=== PATIENT | female | born 1935 | race Caucasian/White ===

== ENCOUNTER 2022-12-06 12:55 | Observation (INO) ==
[2022-12-06 14:20] LABS: Basophils # (auto) 0.03 K/uL (0-0.2); Basophils % (auto) 0.4 %; Eosinophils # (auto) 0.11 K/uL (0-0.50); Eosinophils % (auto) 1.5 %; Hematocrit (blood only) 37.7 % (37.0-47.0); Hemoglobin 12.4 g/dl (12.0-16.0); Immature Granulocytes # (auto) 0.02 K/uL (0.01-0.20); Immature Granulocytes % (auto) 0.3 %; Lymphocytes # (auto) 1.06 K/uL (1.2-3.4); Mean Corpuscular Hemoglobin 30.2 pg (25.0-34.0); Mean Corpuscular Hgb Conc 32.9 g/dL (32.0-36.0); Mean Corpuscular Volume 91.7 fL (80.0-100.0); Mean Platelet Volume 9.3 fL (9.4-12.4); Monocytes # (auto) 0.67 K/uL (0.11-0.59); Monocytes % (auto) 8.9 %; Neutrophils # (auto) 5.67 K/uL (1.40-6.50); Neutrophils % (auto) 74.9 %; Platelet Count 290 K/uL (130-400); RDW Coefficient of Variation 13.2 % (11.5-14.5); RDW Standard Deviation 44.3 fL (36.4-46.3); Red Blood Count 4.11 M/uL (4.20-5.40); White Blood Count 7.56 K/ul (4.8-10.8)
[2022-12-06 14:22] LABS: Appearance Urine Cloudy (Clear); Bacteria Urine Automated 4+ (Negative); Bilirubin Urine Negative (Negative); Blood Urine 1+ (Negative); Color Urine Dark Yellow; Glucose Urine UA Negative (Negative); Ketones Urine Trace (Negative); Leukocyte Esterase Urine 2+ (Negative); Nitrite Urine Positive (Negative); Protein Urine Trace (Negative); RBC Urine Automated 0-4 /hpf (0-4); Urobilinogen Urine Negative (Negative); WBC Urine Automated >30 /hpf (0-5); pH Urine 6.5 (4.5-7.5)
[2022-12-06 14:38] LABS: Albumin Globulin Ratio 1.2 (0.9-2); Albumin Level 3.9 gm/dl (3.4-5.0); BUN Creatinine Ratio 50.7 (10-20); Bilirubin,Total 0.6 mg/dl (0.2-1.0); Calcium 9.8 mg/dl (8.6-10.3); Creatinine Clr Calc Pharmacy 60.1 ml/min; Est GFR (African American) 85.2 ml/min; Est GFR (Non-African American) 73.5 ml/min; Globulin 3.3 gm/dl (2.5-4.0); Potassium 3.6 mmol/L (3.5-5.1); Total Protein 7.2 gm/dl (6.0-8.3)
--- NOTE | 2022-12-06 14:55 | CT Scan Report ---
CT abd pelvis wo con CLINICAL HISTORY: lower abdominal pain TECHNIQUE: Helical axial images of the abdomen and pelvis were obtained. Automated dose lowering tech niques and/or adjustment according to patient size were utilized for this exam. This exam was perfor med without intravenous contrast. CT DOSE: 1806.46 mGy.cm COMPARISON: None available at the time of this dictation. FINDINGS: Lower chest: Bibasilar atelectasis versus scarring is seen. Severe atherosclerotic disease and cardi omegaly noted. Liver: Unremarkable. No focal lesions are seen. Gallbladder and biliary tree: Patient is status post cholecystectomy. No intra- or extrahepatic bilia ry ductal dilation. Pancreas: Unremarkable, no focal lesions. Spleen: Unremarkable. Adrenals: Unremarkable. Kidneys and ureters: Exophytic left renal cyst is seen. Bladder: Diffuse homogeneous wall thickening is seen. Reproductive organs: Unremarkable. Bowel: There is prominent thickening of the rectal wall. Surrounding fat stranding is seen. Numerous diverticula are seen without evidence of diverticulitis. The appendix is normal. A moderate hiatal he rnia is seen. Lymph nodes Retroperitoneal: Unremarkable. Pelvic: Unremarkable. Mesenteric: Unremarkable. Peritoneum: Perirectal fat stranding is seen. No fluid collections or pneumoperitoneum is seen. Vessels: Atherosclerotic calcifications are seen. Abdominal wall: Unremarkable. Bones: Degenerative changes in the visualized spine. IMPRESSION: Thickening of the rectal wall with perirectal fat stranding may represent proctitis, underlying mass lesion cannot be excluded. ACT 112: Negative or not required by law. Electronically signed by: Koby Chin M.D. 12/06/2022 2:54 PM
[2022-12-06] MEDS ORDERED: cefTRIAXone SODIUM 1,000 MG in DEXTROSE 5% AD-VAN 50 ML IV STA (15:36)
--- NOTE | 2022-12-06 15:46 | Emergency Department Note ---
Impression & Plan Abdominal pain, Acute proctitis, Acute UTI (urinary tract infection) ED Provider Note HISTORY OF PRESENT ILLNESS: Patient is an 87-year-old female presenting with abdominal pain. Patient is demented and unable to provide much in terms of history. History obtained from family members at bedside. Reports that the patient was complaining of lower abdominal pain last night and throughout this morning. They were concerned about her continued complaints and thus presented to the ER. Patient is cared for by her son and has in-home nursing come to visit her daily. Her other son is concerned that the [facility] is unable to care for the patient. Patient reportedly had some blood in her stool yesterday. Patient has no complaints on arrival to the ER. She reportedly had a large bowel movement on arrival to the ED. ROS: as above PHYSICAL EXAM: Constitutional: Patient appears in no acute distress. HENT: Head: Normocephalic and atraumatic. Eyes: EOMI, PERRL Mouth/Throat: Mucous membranes moist. Neck: Trachea midline. Neck supple. Cardiovascular: RRR, No murmurs, rubs or gallops. Intact distal pulses. Pulmonary/Chest: No respiratory distress. Breath sounds clear and equal bilaterally. No wheezes or rales. Abdominal: Abdomen soft, no tenderness, rebound or guarding. Rectal: Chaperoned by nursing staff. Patient has stage I decubitus ulcers to her bilateral buttocks. She is also noted to have small external hemorrhoids noted Musculoskeletal: No edema, tenderness or deformity noted. Skin: Warm and dry. No rash, erythema, pallor or cyanosis Neurological: Alert. CN II-XII grossly intact, moving all extremities spontaneously. MDM: - Vitals signs stable - History obtained via family at bedside, given patient's dementia. Patient presents with lower abdominal pain. Patient reportedly was complaining of lower abdominal pain since last night and into today. Family wanted her to be evaluated. Patient is demented and is unable to provide any history - Chronic conditions affecting care: dementia - Differential diagnoses include, but are not limited to: constipation; small bowel obstruction; UTI; ureteral stone; bowel perforation - Order placed for continuous cardiac monitoring. At this time, monitor showed rate of 75 bpm with normal sinus rhythm, per my interpretation. - External medical records reviewed. - Laboratory workup interpreted by myself showed normal WBC; stable electrolytes; elevated BUN (37); normal lipase - UA shows evidence of infection - CT abdomen/pelvis wo contrast showed thickening of the rectal wall with perirectal fat stranding concerning for proctitis - Patient had a very large bowel movement in the emergency department on arrival prior to CT imaging being performed. She may have had some fecal impaction based on her 1 sons information and history. - Given IV Rocephin in the ER - Patient's 1 son who is not her MPOA expresses concern about the patient being cared for by the current MPOA, as he has recently relapsed with alcohol. I discussed the case with home health care social worker who is working to contact [place] [facility] about the patient's situation - Discussion was had with home health care social worker about patient's case and need for admission. - Hospitalist consulted for admission - Patient admitted to [facility]ist service for further evaluation and management. ASSESSMENT AND PLAN: Diagnosis: abdominal pain; procitis; UTI Plan: admit Past Med/Surg History Medical History No pertinent past medical history Surgical History No pertinent past surgical history Social History Smoking Status: Unknown if ever smoked Feels Safe at Home: Yes Allergies Allergies Allergy/AdvReac Type Severity Reaction Status Date / Time No Known Allergies Allergy Verified 12/06/22 15:05 Home Meds Home Medications Medication Instructions Recorded Confirmed Other Vitamins 1 dose PO DAILY 12/06/22 12/06/22 buspirone 10 mg tablet 10 mg PO BID 12/06/22 12/06/22 buspirone 5 mg tablet 5 - 10 mg PO DAILY PRN Anxiety 12/06/22 12/06/22 cholecalciferol (vitamin D3) 125 125 mcg PO DAILY 12/06/22 12/06/22 mcg (5,000 unit) tablet (Vitamin D3) sertraline 50 mg tablet 50 mg PO DAILY 12/06/22 12/06/22 Results & Data (ED) Vital Signs Vital Signs - 24 hr 12/06/22 12:50 12/06/22 14:19 12/06/22 14:39 Temperature 36.5 C Temperature Source Oral Pulse Rate 70 52 L Pulse Rate [Right Finger] 76 Pulse Rhythm [Right Finger] Regular Pulse Strength [Right Finger] Normal Respiratory Rate 20 20 Respiratory Effort / Characteristics Non-Labored Spontaneous Non-Labored Respiratory Depth Normal Normal Respiratory Pattern Regular Blood Pressure 170/82 H Blood Pressure [Right Arm] 138/61 Blood Pressure Mean 111 Blood Pressure Mean [Right Arm] 86 Blood Pressure Position [Right Arm] Lying Pulse Oximetry 96 97 Oxygen Delivery Method Room Air Room Air Sepsis Recent Fever Within 48 Hours No Sepsis New/Unexplained Change in Mental Status No Sepsis Action Taken by Nursing No Action Required Laboratory Data 12/06/22 13:40 12/06/22 13:40 Lab Results 12/06/22 12/06/22 12/06/22 Range/Units 13:40 13:40 14:00 WBC 7.56 (4.8-10.8) K/ul RBC 4.11 L (4.20-5.40) M/uL Hgb 12.4 (12.0-16.0) g/dl Hct 37.7 (37.0-47.0) % MCV 91.7 (80.0-100.0) fL MCH 30.2 (25.0-34.0) pg MCHC 32.9 (32.0-36.0) g/dL RDW Std Deviation 44.3 (36.4-46.3) fL RDW Coeff of Kael 13.2 (11.5-14.5) % Plt Count 290 (130-400) K/uL MPV 9.3 L (9.4-12.4) fL Immature Gran % (Auto) 0.3 % Neut % (Auto) 74.9 % Lymph % (Auto) 14.0 % Victoria % (Auto) 8.9 % Eos % (Auto) 1.5 % Baso % (Auto) 0.4 % Neut # (Auto) 5.67 (1.40-6.50) K/uL Lymph # (Auto) 1.06 L (1.2-3.4) K/uL Victoria # (Auto) 0.67 H (0.11-0.59) K/uL Eos # (Auto) 0.11 (0-0.50) K/uL Baso # (Auto) 0.03 (0-0.2) K/uL Immature Gran # (Auto) 0.02 (0.01-0.20) K/uL Sodium 141 (136-145) mmol/L Potassium 3.6 (3.5-5.1) mmol/L Chloride 107 (98-107) mmol/L Carbon Dioxide 27 (21-32) mmol/L Anion Gap 7 (3-11) BUN 37 H (6-23) mg/dl Creatinine 0.73 (0.6-1.2) mg/dl Est Cr Clr Drug Dosing 60.1 ml/min Est GFR ( Amer) 85.2 ml/min Est GFR (Non-Af Amer) 73.5 ml/min BUN/Creatinine Ratio 50.7 H (10-20) Glucose 108 H (70-99(Fasting)) mg/dl Calcium 9.8 (8.6-10.3) mg/dl Total Bilirubin 0.6 (0.2-1.0) mg/dl AST 22 (13-39) U/L ALT 18 (7-52) U/L Alkaline Phosphatase 105 H (34-104) U/L Total Protein 7.2 (6.0-8.3) gm/dl Albumin 3.9 (3.4-5.0) gm/dl Globulin 3.3 (2.5-4.0) gm/dl Albumin/Globulin Ratio 1.2 (0.9-2) Lipase 27 (11-82) U/L Urine Color Dark Yellow Urine Appearance Cloudy A (Clear) Urine pH 6.5 (4.5-7.5) Ur Specific Ewing 1.020 (1.000-1.030) Urine Protein Trace H (Negative) Urine Glucose (UA) Negative (Negative) Urine Ketones Trace H (Negative) Urine Blood 1+ H (Negative) Urine Nitrite Positive A (Negative) Urine Bilirubin Negative (Negative) Urine Urobilinogen Negative (Negative) Ur Leukocyte Esterase 2+ H (Negative) Urine WBC (Auto) >30 H (0-5) /hpf Urine RBC (Auto) 0-4 (0-4) /hpf U Hyaline Cast (Auto) 1-5 (0-5) /lpf U Epithel Cells (Auto) 5-10 H (0-5) /lpf Urine Bacteria (Auto) 4+ H (Negative) Urine Yeast Not Reportable Imaging Data Radiologist's Impression: Abdomen/Pelvis CT 12/06/22 13:27 CT abd pelvis wo con CLINICAL HISTORY: lower abdominal pain TECHNIQUE: Helical axial images of the abdomen and pelvis were obtained. Automated dose lowering techniques and/or adjustment according to patient size were utilized for this exam. This exam was performed without intravenous contrast. CT DOSE: 1806.46 mGy.cm COMPARISON: None available at the time of this dictation. FINDINGS: Lower chest: Bibasilar atelectasis versus scarring is seen. Severe atherosclerotic disease and cardiomegaly noted. Liver: Unremarkable. No focal lesions are seen. Gallbladder and biliary tree: Patient is status post cholecystectomy. No intra- or extrahepatic biliary ductal dilation. Pancreas: Unremarkable, no focal lesions. Spleen: Unremarkable. Adrenals: Unremarkable. Kidneys and ureters: Exophytic left renal cyst is seen. Bladder: Diffuse homogeneous wall thickening is seen. Reproductive organs: Unremarkable. Bowel: There is prominent thickening of the rectal wall. Surrounding fat stranding is seen. Numerous diverticula are seen without evidence of diverticulitis. The appendix is normal. A moderate hiatal hernia is seen. Lymph nodes Retroperitoneal: Unremarkable. Pelvic: Unremarkable. Mesenteric: Unremarkable. Peritoneum: Perirectal fat stranding is seen. No fluid collections or pneumoperitoneum is seen. Vessels: Atherosclerotic calcifications are seen. Abdominal wall: Unremarkable. Bones: Degenerative changes in the visualized spine. IMPRESSION: Thickening of the rectal wall with perirectal fat stranding may represent proctitis, underlying mass lesion cannot be excluded. ACT 112: Negative or not required by law. Electronically signed by: Koby Chin M.D. 12/06/2022 2:54 PM Discharge Plan Visit Data Chief Complaint: Abdominal Pain Stated Complaint: Abd Pain ED Provider: Adilene Rajput Discharge Problem: Abdominal pain, Acute proctitis, Acute UTI (urinary tract infection) Forms Stand Alone Forms: My [facility] Aunt Bertha Prescriptions Prescriptions: No Action buspirone 5 mg tablet 5 - 10 mg PO DAILY PRN (Reason: Anxiety) Rx Instructions: PER PT'S SON "DOES NOT USE THIS DOSE". buspirone 10 mg tablet 10 mg PO BID Rx Instructions: PER PT'S SON "TAKES ONLY WHEN NEEDED". sertraline 50 mg tablet 50 mg PO DAILY Rx Instructions: PER PT'S SON "FILLED SCRIPT, BUT NEVER HAS TAKEN". cholecalciferol (vitamin D3) [Vitamin D3] 125 mcg (5,000 unit) Tablet 125 mcg PO DAILY Other Vitamins 1 dose PO DAILY Rx Instructions: PER PT'S SON "TAKES OTHER VITAMINS TOO". Referrals Referrals: Iávn Haddad [facility] [Primary Care Provider] -
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
[2022-12-06] MEDS ORDERED: cefTRIAXone SODIUM 1,000 MG in DEXTROSE 5% 50 ML IV STA (16:54)
[2022-12-06] MEDS ORDERED: ALUMINUM/MAGNESIUM SUSP 30 ML UDC PO PRN (18:27)
[2022-12-06] MEDS ORDERED: ACETAMINOPHEN 325 MG TAB PO PRN (18:27)
[2022-12-06] MEDS ORDERED: MAGNESIUM HYDROXIDE SUSP 30 ML UDC PO PRN (18:27)
[2022-12-06] MEDS ORDERED: LACTATED RINGER'S 1,000 ML IV SCH (18:27)
[2022-12-06] MEDS ORDERED: ONDANSETRON INJ 2 MG/ML 2 ML VIAL IV PRN (18:27)
[2022-12-06] MEDS: DOCUSATE SODIUM/SENNA 50/8.6MG TAB PO SCH (19:42)
[2022-12-06] MEDS: ENOXAPARIN INJ 40 MG/0.4 ML SYR SQ SCH (20:55)
[2022-12-07 07:27] LABS: Basophils # (auto) 0.02 K/uL (0-0.2); Basophils % (auto) 0.4 %; Eosinophils # (auto) 0.16 K/uL (0-0.50); Eosinophils % (auto) 3.2 %; Hematocrit (blood only) 33.7 % (37.0-47.0); Hemoglobin 11.4 g/dl (12.0-16.0); Immature Granulocytes # (auto) 0.01 K/uL (0.01-0.20); Immature Granulocytes % (auto) 0.2 %; Lymphocytes % (auto) 26.2 %; Mean Corpuscular Hemoglobin 30.1 pg (25.0-34.0); Mean Corpuscular Hgb Conc 33.8 g/dL (32.0-36.0); Mean Corpuscular Volume 88.9 fL (80.0-100.0); Mean Platelet Volume 9.2 fL (9.4-12.4); Monocytes % (auto) 12.1 %; Neutrophils # (auto) 2.87 K/uL (1.40-6.50); Neutrophils % (auto) 57.9 %; Platelet Count 265 K/uL (130-400); RDW Coefficient of Variation 13.2 % (11.5-14.5); RDW Standard Deviation 42.9 fL (36.4-46.3); Red Blood Count 3.79 M/uL (4.20-5.40); White Blood Count 4.96 K/ul (4.8-10.8)
[2022-12-07 07:54] LABS: Albumin Globulin Ratio 1.1 (0.9-2); Albumin Level 3.4 gm/dl (3.4-5.0); BUN Creatinine Ratio 51.8 (10-20); Bilirubin,Total 0.6 mg/dl (0.2-1.0); Calcium 9.2 mg/dl (8.6-10.3); Creatinine Clr Calc Pharmacy 71.8 ml/min; Est GFR (African American) 96.5 ml/min; Est GFR (Non-African American) 83.2 ml/min; Magnesium 1.9 mg/dl (1.7-2.4); Potassium 3.8 mmol/L (3.5-5.1); Total Protein 6.4 gm/dl (6.0-8.3)
[2022-12-07] MEDS: DOCUSATE SODIUM/SENNA 50/8.6MG TAB PO SCH (07:56)
[2022-12-07] MEDS ORDERED: NYSTATIN CR 15 GM TUBE EXT SCH (09:30)
--- NOTE | 2022-12-07 09:33 | Hospitalist Progress Note ---
Date of Service December 07, 2022 Assessment & Plan (1) Acute UTI (urinary tract infection): (2) Abdominal pain: (3) Dehydration: (4) Anxiety: Plan This is an 87-year-old female who has underlying dementia and anxiety who presents to ED secondary to abdominal pain. CT a/p:Thickening of the rectal wall with perirectal fat stranding may represent proctitis, underlying mass lesion cannot be excluded. Abdominal Pain Acute UTI abd pain likely in setting of constipation has resolved after bowel movement urinalysis consistent with UTI Empiric Rocephin was initiated Will await urine culture - ucultx shows multiple organisms -> will re-collect Patient does not appear toxic and does not meet sepsis criteria Consult PT OT Sacral Erythema/wound b/l stage 2, POA wound care consulted Dementia Anxiety per son at bedside pt does not take any medications at home despite med list; therefore will not continue any meds documented FULL CODE DISPO: med/surg DVT ppx: Lovenox PCP: Iván Haddad Per admitting provider - Dispo: CM consulted, concern regarding safety of pt returning home with son who is reported to have relapsed. Pt also has evidence of sacral breakdown and per Gonzalez is only being changed 3-4 x a day. APS was made aware per CM in ED. will need further assistance with dispo, CM consulted Admission and Anticipated Discharge Date Admission Date: December 06, 2022 Subjective Pt seen in follow up of UTI, constipation/ poss. fecal impaction documented laquita or to coming to ED, now resolved CM involved - pt has 2 sons - one of them is POA - OOA involved, one son acutely passed prior to pt's admission Pt on ceftriaxone for UTI, ucultx pending -> will repeat as multiple organisms Currently pt laying in bed in NAD Denies any pain, no chest pain, shortness of breath, no abd. pain Updated son over the phone Review of Systems Review of Systems: All systems reviewed & are unremarkable except as noted in Subjective Physical Exam 2 Physical Exam: Constitutional: W D/WN, Elderly, F, vitals as above, N AD, sitting up in bed, pleasant, con versing easily Hea d: Normocephalic, Atraumatic, + brui sing to superior a spect of left eye Eyes: PERRL, conj unctivae normal, a nicteric sclerae E NMT: external ear and nose normal, oropharynx normal Neck: normal visu al inspection Resp iratory: normal r espiratory effort, lungs clear to au scultation, no whe garrett, rales, rhonch i. Cardiovascular: RRR, no murmur, no edema Vessels: no JVD or carotid bruit Chest: norm al inspection of c hest Abdomen: norm al bowel sounds, s oft, nontender Mus culoskeletal: move s extremities Skin : no rashes, warm and dry normal t urgor Neurologic: drowsy but answer s simple questions , PERRL, no face p alsy, moves extrem ities Results & Data Results & Data Vital Signs (Past 12 Hours) Vital Signs Temp Pulse Resp BP Pulse Ox O2 Del Method 12/07/22 06:17 36.8 C 79 18 162/90 H 96 Room Air Laboratory Results 12/07/22 12/07/22 12/06/22 Range/Units 07:01 07:01 14:00 WBC 4.96 (4.8-10.8) K/ul RBC 3.79 L (4.20-5.40) M/uL Hgb 11.4 L (12.0-16.0) g/dl Hct 33.7 L (37.0-47.0) % MCV 88.9 (80.0-100.0) fL MCH 30.1 (25.0-34.0) pg MCHC 33.8 (32.0-36.0) g/dL RDW Std Deviation 42.9 (36.4-46.3) fL RDW Coeff of Kael 13.2 (11.5-14.5) % Plt Count 265 (130-400) K/uL MPV 9.2 L (9.4-12.4) fL Immature Gran % (Auto) 0.2 % Neut % (Auto) 57.9 % Lymph % (Auto) 26.2 % [place] % (Auto) 12.1 % Eos % (Auto) 3.2 % Baso % (Auto) 0.4 % Neut # (Auto) 2.87 (1.40-6.50) K/uL Lymph # (Auto) 1.30 (1.2-3.4) K/uL [place] # (Auto) 0.60 H (0.11-0.59) K/uL Eos # (Auto) 0.16 (0-0.50) K/uL Baso # (Auto) 0.02 (0-0.2) K/uL Immature Gran # (Auto) 0.01 (0.01-0.20) K/uL Sodium 140 (136-145) mmol/L Potassium 3.8 (3.5-5.1) mmol/L Chloride 111 H (98-107) mmol/L Carbon Dioxide 24 (21-32) mmol/L Anion Gap 5 (3-11) BUN 29 H (6-23) mg/dl Creatinine 0.56 L (0.6-1.2) mg/dl Est Cr Clr Drug Dosing 71.8 ml/min Est GFR ( Amer) 96.5 ml/min Est GFR (Non-Af Amer) 83.2 ml/min BUN/Creatinine Ratio 51.8 H (10-20) Glucose 86 (70-99(Fasting)) mg/dl Calcium 9.2 (8.6-10.3) mg/dl Magnesium 1.9 (1.7-2.4) mg/dl Total Bilirubin 0.6 (0.2-1.0) mg/dl AST 19 (13-39) U/L ALT 14 (7-52) U/L Alkaline Phosphatase 90 (34-104) U/L Total Protein 6.4 (6.0-8.3) gm/dl Albumin 3.4 (3.4-5.0) gm/dl Globulin 3.0 (2.5-4.0) gm/dl Albumin/Globulin Ratio 1.1 (0.9-2) Lipase (11-82) U/L Urine Color Dark Yellow Urine Appearance Cloudy A (Clear) Urine pH 6.5 (4.5-7.5) Ur Specific [place] 1.020 (1.000-1.030) Urine Protein Trace H (Negative) Urine Glucose (UA) Negative (Negative) Urine Ketones Trace H (Negative) Urine Blood 1+ H (Negative) Urine Nitrite Positive A (Negative) Urine Bilirubin Negative (Negative) Urine Urobilinogen Negative (Negative) Ur Leukocyte Esterase 2+ H (Negative) Urine WBC (Auto) >30 H (0-5) /hpf Urine RBC (Auto) 0-4 (0-4) /hpf U Hyaline Cast (Auto) 1-5 (0-5) /lpf U Epithel Cells (Auto) 5-10 H (0-5) /lpf Urine Bacteria (Auto) 4+ H (Negative) Urine Yeast Not Reportable 12/06/22 12/06/22 Range/Units 13:40 13:40 WBC 7.56 (4.8-10.8) K/ul RBC 4.11 L (4.20-5.40) M/uL Hgb 12.4 (12.0-16.0) g/dl Hct 37.7 (37.0-47.0) % MCV 91.7 (80.0-100.0) fL MCH 30.2 (25.0-34.0) pg MCHC 32.9 (32.0-36.0) g/dL RDW Std Deviation 44.3 (36.4-46.3) fL RDW Coeff of Kael 13.2 (11.5-14.5) % Plt Count 290 (130-400) K/uL MPV 9.3 L (9.4-12.4) fL Immature Gran % (Auto) 0.3 % Neut % (Auto) 74.9 % Lymph % (Auto) 14.0 % [place] % (Auto) 8.9 % Eos % (Auto) 1.5 % Baso % (Auto) 0.4 % Neut # (Auto) 5.67 (1.40-6.50) K/uL Lymph # (Auto) 1.06 L (1.2-3.4) K/uL [place] # (Auto) 0.67 H (0.11-0.59) K/uL Eos # (Auto) 0.11 (0-0.50) K/uL Baso # (Auto) 0.03 (0-0.2) K/uL Immature Gran # (Auto) 0.02 (0.01-0.20) K/uL Sodium 141 (136-145) mmol/L Potassium 3.6 (3.5-5.1) mmol/L Chloride 107 (98-107) mmol/L Carbon Dioxide 27 (21-32) mmol/L Anion Gap 7 (3-11) BUN 37 H (6-23) mg/dl Creatinine 0.73 (0.6-1.2) mg/dl Est Cr Clr Drug Dosing 60.1 ml/min Est GFR ( Amer) 85.2 ml/min Est GFR (Non-Af Amer) 73.5 ml/min BUN/Creatinine Ratio 50.7 H (10-20) Glucose 108 H (70-99(Fasting)) mg/dl Calcium 9.8 (8.6-10.3) mg/dl Magnesium (1.7-2.4) mg/dl Total Bilirubin 0.6 (0.2-1.0) mg/dl AST 22 (13-39) U/L ALT 18 (7-52) U/L Alkaline Phosphatase 105 H (34-104) U/L Total Protein 7.2 (6.0-8.3) gm/dl Albumin 3.9 (3.4-5.0) gm/dl Globulin 3.3 (2.5-4.0) gm/dl Albumin/Globulin Ratio 1.2 (0.9-2) Lipase 27 (11-82) U/L Urine Color Urine Appearance (Clear) Urine pH (4.5-7.5) Ur Specific [place] (1.000-1.030) Urine Protein (Negative) Urine Glucose (UA) (Negative) Urine Ketones (Negative) Urine Blood (Negative) Urine Nitrite (Negative) Urine Bilirubin (Negative) Urine Urobilinogen (Negative) Ur Leukocyte Esterase (Negative) Urine WBC (Auto) (0-5) /hpf Urine RBC (Auto) (0-4) /hpf U Hyaline Cast (Auto) (0-5) /lpf U Epithel Cells (Auto) (0-5) /lpf Urine Bacteria (Auto) (Negative) Urine Yeast Medications Administered Current Inpatient Medications Acetaminophen (Acetaminophen 325 Mg Tab) 650 mg PO Q4H PRN PRN Reason: pain/fever Stop: 01/05/23 18:26 Al Hydrox/Mg Hydrox/Simethicone (Aluminum/Magnesium Susp 30 Ml Udc) 30 ml PO Q6H PRN PRN Reason: Dyspepsia Stop: 01/05/23 18:26 Enoxaparin Sodium (Enoxaparin Inj 40 Mg/0.4 Ml Syr) 40 mg SQ HS BRITNI Stop: 01/05/23 20:59 Last Admin: 12/06/22 20:55 Dose: 40 mg Ceftriaxone Sodium 2,000 mg/ (Dextrose) 70 mls @ 100 mls/hr IV Q24H BRITNI; Protocol Stop: 12/17/22 13:59 Magnesium Hydroxide (Magnesium Hydroxide Susp 30 Ml Udc) 30 ml PO Q6H PRN PRN Reason: Constipation Stop: 01/05/23 18:26 Nystatin (Nystatin Cr 15 Gm Tube) 1 appln EXT PRN BRITNI Stop: 01/06/23 09:29 Ondansetron HCl (Ondansetron Inj 2 Mg/Ml 2 Ml Vial) 4 mg IV Q6H PRN PRN Reason: Nausea Stop: 01/05/23 18:26 Senna/Docusate Sodium (Docusate Sodium/Senna 50/8.6mg Tab) 1 tab PO QAM [facility] Stop: 01/05/23 18:44 Last Admin: 12/07/22 07:56 Dose: 1 tab
[2022-12-07] MEDS ORDERED: NYSTATIN CR 15 GM TUBE EXT PRN (09:50)
[2022-12-07] MEDS: cefTRIAXone SODIUM 2,000 MG in DEXTROSE 5% 50 ML IV SCH (14:15)
[2022-12-07 15:34] LABS: Appearance Urine Turbid (Clear); Bacteria Urine Automated Negative (Negative); Bilirubin Urine Negative (Negative); Blood Urine Negative (Negative); Cast Urine Automated 0 /lpf (0-5); Color Urine Yellow; Glucose Urine UA Negative (Negative); Ketones Urine Negative (Negative); Leukocyte Esterase Urine Trace (Negative); Nitrite Urine Positive (Negative); Protein Urine Negative (Negative); Specific Gravity Urine 1.021 (1.000-1.030); Urobilinogen Urine Negative (Negative); pH Urine 7.5 (4.5-7.5)
[2022-12-07 15:53] LABS: Amorphous Sediment Urine Present (None Prsent)
[2022-12-07] MEDS: SODIUM CHLORIDE 0.9% 500 ML IV SCH (16:26)
[2022-12-07] MEDS: ENOXAPARIN INJ 40 MG/0.4 ML SYR SQ SCH (20:15)
[2022-12-08] MEDS ORDERED: OLANZapine 10 MG/2.1 ML SDV IM STA (04:23)
[2022-12-08 06:53] LABS: Hematocrit (blood only) 31.1 % (37.0-47.0); Hemoglobin 10.7 g/dl (12.0-16.0); Mean Corpuscular Hemoglobin 30.7 pg (25.0-34.0); Mean Corpuscular Hgb Conc 34.4 g/dL (32.0-36.0); Mean Corpuscular Volume 89.4 fL (80.0-100.0); Mean Platelet Volume 9.4 fL (9.4-12.4); Platelet Count 233 K/uL (130-400); RDW Coefficient of Variation 13.2 % (11.5-14.5); RDW Standard Deviation 43.4 fL (36.4-46.3); Red Blood Count 3.48 M/uL (4.20-5.40); White Blood Count 3.71 K/ul (4.8-10.8)
[2022-12-08 07:15] LABS: BUN Creatinine Ratio 41.5 (10-20); Calcium 9.1 mg/dl (8.6-10.3); Creatinine Clr Calc Pharmacy 75.9 ml/min; Est GFR (African American) 98.3 ml/min; Est GFR (Non-African American) 84.8 ml/min; Magnesium 1.7 mg/dl (1.7-2.4); Phosphorus 3.2 mg/dl (2.5-4.9); Potassium 3.7 mmol/L (3.5-5.1)
[2022-12-08] MEDS: DOCUSATE SODIUM/SENNA 50/8.6MG TAB PO SCH (09:19)
[2022-12-08] MEDS: SODIUM CHLORIDE 0.9% 500 ML IV SCH ×2 (14:13→19:02)
[2022-12-08] MEDS: cefTRIAXone SODIUM 2,000 MG in DEXTROSE 5% 50 ML IV SCH (14:34)
[2022-12-08] MEDS: ENOXAPARIN INJ 40 MG/0.4 ML SYR SQ SCH (20:32)
--- NOTE | 2022-12-08 20:53 | Hospitalist Progress Note ---
Date of Service December 08, 2022 delayed entry date of service noted above Assessment & Plan (1) Acute UTI (urinary tract infection): (2) Abdominal pain: (3) Dehydration: (4) Anxiety: Plan (1) Acute UTI (urinary tract infection): (2) Abdominal pain: (3) Dehydration: (4) Anxiety: Plan This is an 87-year-old female who has underlying dementia and anxiety who presents to ED secondary to abdominal pain. CT a/p:Thickening of the rectal wall with perirectal fat stranding may represent proctitis, underlying mass lesion cannot be excluded. Abdominal Pain likely secondary to constipation Acute UTI abd pain likely in setting of constipation has resolved after bowel movement urinalysis consistent with UTI Urine culture: Multiple organisms, no sensitivities Improving with IV ceftriaxone MiraLAX daily Sacral Erythema/wound b/l stage 2, POA wound care consulted Dementia Anxiety per son at bedside pt does not take any medications at home despite med list; therefore will not continue any meds documented FULL CODE DISPO: med/surg DVT ppx: Lovenox PCP: Iván Haddad plan of care discussed with patient's son in detail and at length all questions answered he is understanding, agreeable, comfortable with the plan of care Admission and Anticipated Discharge Date Admission Date: December 07, 2022 Subjective ff up for UTI, etc seen resting in bedside chair, comfortable oriented x 1-2 answers most questions appropriately denies abdominal pain, urinary problems, fever/chills no chest pain, dyspnea, palpitations, dizziness no other symptoms son at bedside visiting Review of Systems 2 Review of Systems: all noted and negative except for above Physical Exam Physical Exam: General- oriented x 1-2, not in distress, speaks in sentences with no effort or accessory muscle use Head- atraumatic Eyes- PERRL, EOMI, anicteric ENT- oropharynx clear Neck- supple, no JVD, no adenopathy, no thyromegaly; carotids +2/2, no bruits appreciated Lungs- clear to auscultation bilaterally, no rales/wheezes Heart- normal rate, regular rhythm; no murmur, no gallop, no rub appreciated Abdomen- normal bowel sounds, nondistended, soft, nontender, no masses or hepatosplenomegaly Extremities- no pretibial edema, no calf tenderness; peripheral pulses intact Neuro- alert, oriented x 1-2; CN 2-12 grossly intact; pleasantly confused, no other focal symptoms Skin- warm & dry Results & Data Results & Data Vital Signs (Past 12 Hours) Vital Signs Temp Pulse Resp BP Pulse Ox O2 Del Method 12/08/22 20:28 36.9 C 64 18 148/80 H 95 Room Air 12/08/22 19:36 36.7 C 60 18 137/70 96 Room Air 12/08/22 14:09 36.8 C 61 18 145/73 H 95 Room Air all noted and reviewed including below
[2022-12-09] MEDS: DOCUSATE SODIUM/SENNA 50/8.6MG TAB PO SCH (08:14)
[2022-12-09] MEDS: cefTRIAXone SODIUM 2,000 MG in DEXTROSE 5% 50 ML IV SCH (14:16)
--- NOTE | 2022-12-09 20:48 | Hospitalist Progress Note ---
Date of Service December 09, 2022 Assessment & Plan (1) Acute UTI (urinary tract infection): (2) Abdominal pain: (3) Dehydration: (4) Anxiety: Plan This is an 87-year-old female who has underlying dementia and anxiety who presents to ED secondary to abdominal pain. CT a/p:Thickening of the rectal wall with perirectal fat stranding may represent proctitis, underlying mass lesion cannot be excluded. Abdominal Pain likely secondary to constipation Acute UTI abd pain likely in setting of constipation has resolved after bowel movement urinalysis consistent with UTI Urine culture: Multiple organisms, no sensitivities Improving with IV ceftriaxone x4 days, transition to cefdinir 300 mg p.o. twice daily today MiraLAX daily Sacral Erythema/wound b/l stage 2, POA wound care consulted Dementia Anxiety per son at bedside pt does not take any medications at home despite med list; therefore will not continue any meds documented FULL CODE DISPO: med/surg DVT ppx: Lovenox PCP: Iván Haddad Admission and Anticipated Discharge Date Admission Date: December 07, 2022 Subjective Follow-up for UTI, etc. Seen sitting up in bed side chair, sleeping but easily awakened Patient has been doing puzzles States she feels fine overall Denies abdominal/flank/back pain, no problems with urination or bowel movement Review of Systems Review of Systems: all noted and negative except for above Physical Exam Physical Exam: General- not oriented, breathing with no effort or accessory muscle use Eyes- anicteric Neck- no JVD Lungs- clear breath sounds bilaterally Heart- normal rate, regular rhythm; no murmurs Abdomen- normal bowel sounds, nondistended, soft, nontender Extremities-mild pedal edema, no calf tenderness Neuro- alert, pleasantly confused, no gross focal neurologic deficits Skin- warm & dry Results & Data Results & Data Vital Signs (Past 12 Hours) Vital Signs Temp Pulse Resp BP Pulse Ox O2 Del Method 12/09/22 14:54 37.0 C 54 L 16 145/76 H 98 Room Air 12/09/22 09:50 Room Air
[2022-12-09] MEDS: ENOXAPARIN INJ 40 MG/0.4 ML SYR SQ SCH (21:20)
[2022-12-10] MEDS: DOCUSATE SODIUM/SENNA 50/8.6MG TAB PO SCH (07:51)
[2022-12-10] MEDS: CEFDINIR 300 MG CAP PO SCH ×2 (11:03→19:16)
[2022-12-10] MEDS: POLYETHYLENE (MIRALAX) 17 GM PACK PO SCH (18:45)
[2022-12-10] MEDS: ENOXAPARIN INJ 40 MG/0.4 ML SYR SQ SCH (19:16)
[2022-12-11] MEDS: CEFDINIR 300 MG CAP PO SCH ×2 (08:23→20:19)
[2022-12-11] MEDS: DOCUSATE SODIUM/SENNA 50/8.6MG TAB PO SCH (08:23)
[2022-12-11] MEDS: POLYETHYLENE (MIRALAX) 17 GM PACK PO SCH (08:23)
[2022-12-11] MEDS: lisinopril 5 MG TAB PO SCH (13:35)
--- NOTE | 2022-12-11 17:24 | Hospitalist Progress Note ---
Date of Service December 11, 2022 Delayed entry Date of service per above Assessment & Plan (1) Acute UTI (urinary tract infection): (2) Abdominal pain: (3) Dehydration: (4) Anxiety: Plan This is an 87-year-old female who has underlying dementia and anxiety who presents to ED secondary to abdominal pain. CT a/p:Thickening of the rectal wall with perirectal fat stranding may represent proctitis, underlying mass lesion cannot be excluded. Abdominal Pain likely secondary to constipation Acute UTI abd pain likely in setting of constipation has resolved after bowel movement urinalysis consistent with UTI Urine culture: Multiple organisms, no sensitivities Completed 5-day course of antibiotics including 4 days of IV ceftriaxone and 1 day of cefdinir Doing fine MiraLAX daily CONSTIPATION Lactulose ordered today Sacral Erythema/wound b/l stage 2, POA wound care consulted Discussed with RN regarding daily wound care Dementia Anxiety per son at bedside pt does not take any medications at home despite med list; therefore will not continue any meds documented FULL CODE DISPO: med/surg DVT ppx: Lovenox PCP: Iván Haddad Admission and Anticipated Discharge Date Admission Date: December 07, 2022 Subjective ff up for UTI, etc. Seen resting in chair, comfortable no distress Awake, alert, conversant Patient's son at the bedside visiting Patient denies abdominal pain No BM yet No urinary symptoms No other symptoms Review of Systems Review of Systems: all noted and negative except for above Physical Exam Physical Exam: General- oriented x 3, not in distress, speaks in sentences with no effort or accessory muscle use Eyes- anicteric Neck- no JVD Lungs- clear breath sounds bilaterally, no crackles or wheezing Heart- normal rate, regular rhythm; no murmurs Abdomen- normal bowel sounds, nondistended, soft, no tenderness Extremities- no pretibial edema, no calf tenderness Neuro- alert, oriented x 3; no gross focal neurologic deficits Skin- warm & dry Results & Data Results & Data Vital Signs (Past 12 Hours) Vital Signs Temp Pulse Resp BP Pulse Ox O2 Del Method 12/11/22 16:13 37.1 C 52 L 16 152/72 H 95 Room Air 12/11/22 07:49 Room Air 12/11/22 07:32 36.7 C 58 L 16 168/72 H 97 Room Air all noted and reviewed including below
[2022-12-11] MEDS ORDERED: LACTULOSE SYRUP 20 GM/30 ML UDC PO ONE (17:39)
[2022-12-11] MEDS: ENOXAPARIN INJ 40 MG/0.4 ML SYR SQ SCH (20:19)
[2022-12-12] MEDS: lisinopril 5 MG TAB PO SCH (09:24)
[2022-12-12] MEDS: DOCUSATE SODIUM/SENNA 50/8.6MG TAB PO SCH (09:25)
[2022-12-12] MEDS: CEFDINIR 300 MG CAP PO SCH (09:25)
[2022-12-12] MEDS: POLYETHYLENE (MIRALAX) 17 GM PACK PO SCH (09:25)
[2022-12-12] MEDS ORDERED: LACTULOSE SYRUP 20 GM/30 ML UDC PO ONE (13:34)
--- NOTE | 2022-12-12 13:37 | Hospitalist Progress Note ---
Date of Service December 12, 2022 Assessment & Plan (1) Acute UTI (urinary tract infection): (2) Abdominal pain: (3) Dehydration: (4) Anxiety: Plan This is an 87-year-old female who has underlying dementia and anxiety who presents to ED secondary to abdominal pain. CT a/p:Thickening of the rectal wall with perirectal fat stranding may represent proctitis, underlying mass lesion cannot be excluded. Abdominal Pain likely secondary to constipation Acute UTI abdominal pain likely in setting of constipation has resolved after bowel movement urinalysis consistent with UTI Urine culture: Multiple organisms, no sensitivities Completed 5-day course of antibiotics including 4 days of IV ceftriaxone and 1 day of cefdinir Doing fine MiraLAX daily CONSTIPATION Another dose of lactulose If without BM in the afternoon, will order acute enema Sacral Erythema/wound b/l stage 2, POA wound care consulted Discussed with RN regarding daily wound care Dementia Anxiety per son at bedside pt does not take any medications at home despite med list; therefore will not continue any meds documented FULL CODE DISPO: transition to acute rehab or SNF when medically stable DVT ppx: Lovenox PCP: Iván Haddad Admission and Anticipated Discharge Date Admission Date: December 07, 2022 Subjective Follow-up for UTI, etc. Seen resting in bed side chair, comfortable, doing puzzles States she feels fine overall Abdominal pain, problems with urination No shortness of breath, chest pain, positional dizziness No other symptoms Review of Systems Review of Systems: all noted and negative except for above Physical Exam Physical Exam: General-not oriented, not in distress, speaks in sentences with no effort or accessory muscle use Eyes- anicteric Neck- no JVD Lungs- clear breath sounds bilaterally, no rales Heart- normal rate, regular rhythm; no murmurs Abdomen- normal bowel sounds, nondistended, soft, no tenderness Extremities- no pretibial edema, no calf tenderness Neuro- alert, not oriented; no gross focal neurologic deficits Skin- warm & dry Results & Data Results & Data Vital Signs (Past 12 Hours) Vital Signs Temp Pulse Resp BP Pulse Ox O2 Del Method 12/12/22 08:41 37.2 C 55 L 18 133/69 95 Room Air all noted and reviewed including below
[2022-12-12] MEDS ORDERED: bisacodyL 10 MG SUPP PR STA (17:21)
[2022-12-12] MEDS: ENOXAPARIN INJ 40 MG/0.4 ML SYR SQ SCH (20:51)
[2022-12-13] MEDS: DOCUSATE SODIUM/SENNA 50/8.6MG TAB PO SCH (08:35)
[2022-12-13] MEDS: lisinopril 5 MG TAB PO SCH (08:35)
[2022-12-13] MEDS: POLYETHYLENE (MIRALAX) 17 GM PACK PO SCH (08:36)
--- NOTE | 2022-12-13 14:36 | Hospitalist Progress Note ---
Date of Service December 13, 2022 Assessment & Plan (1) Acute UTI (urinary tract infection): (2) Abdominal pain: (3) Dehydration: (4) Anxiety: Plan This is an 87-year-old female who has underlying dementia and anxiety who presents to ED secondary to abdominal pain. Abdominal Pain likely secondary to constipation Acute UTI CT ABD/pelvis: Thickening of the rectal wall with perirectal fat stranding may represent proctitis, underlying mass lesion cannot be excluded. abdominal pain likely in setting of constipation has resolved after bowel movement BM x 2 on 12/12 Consider outpatient colonoscopy Continue bowel regimen UA consistent with UTI Urine culture: Multiple organisms, no sensitivities Completed 5-day course of antibiotics including 4 days of IV ceftriaxone and 1 day of cefdinir Sacral Erythema/wound b/l stage 2, POA wound care consulted daily wound care Dementia Anxiety per son on admission pt does not take any medications at home despite med list; therefore will not continue any meds documented DVT PROPHYLAXIS SQ Lovenox Dispo: Pending placement to [facility] tomorrow Patient seen in collaboration with Dr. Cuevas. Admission and Anticipated Discharge Date Admission Date: December 07, 2022 Subjective Follow-up for UTI and constipation. Patient seen and examined. Sitting up in the chair, offers no complaints. + BM yesterday. Denies abdominal pain or nausea. No chest pain or shortness of breath. Awaiting placement. Physical Exam Constitutional: WD/WN, vitals as above no acute distress Sitting up in chair Respiratory: normal respiratory effort, lungs clear to auscultation Cardiovascular: Rate/Rhythm: regular rate and regular rhythm Vessels: normal peripheral pulses Extremities: + edema (Trace edema BLE) Gastrointestinal (Abdomen): Inspection/Auscultation: normal bowel sounds Percussion/Palpation: abdomen soft; abdomen nontender Skin: no rashes, warm and dry Neurologic: no focal motor deficits Psychiatric: Orientation: alert and oriented to person; + not oriented to place and + not oriented to time Insight: + limited insight Results & Data Results & Data Vital Signs (Past 12 Hours) Vital Signs Temp Pulse Resp BP Pulse Ox O2 Del Method 12/13/22 07:56 36.4 C L 53 L 18 159/78 H 98 Room Air
[2022-12-13] MEDS: ENOXAPARIN INJ 40 MG/0.4 ML SYR SQ SCH (19:53)
[2022-12-14] MEDS: DOCUSATE SODIUM/SENNA 50/8.6MG TAB PO SCH (08:12)
[2022-12-14] MEDS: lisinopril 5 MG TAB PO SCH (08:12)
[2022-12-14] MEDS: POLYETHYLENE (MIRALAX) 17 GM PACK PO SCH (08:12)
--- NOTE | 2022-12-14 12:44 | Hospitalist Progress Note ---
Date of Service December 14, 2022 Assessment & Plan (1) Acute UTI (urinary tract infection): (2) Abdominal pain: (3) Dehydration: (4) Anxiety: Plan This is an 87-year-old female who has underlying dementia and anxiety who presents to ED secondary to abdominal pain. Abdominal Pain likely secondary to constipation Acute UTI CT ABD/pelvis: Thickening of the rectal wall with perirectal fat stranding may represent proctitis, underlying mass lesion cannot be excluded. abdominal pain likely in setting of constipation has resolved after bowel movement BM x 2 on 12/12 Consider outpatient colonoscopy Continue bowel regimen UA consistent with UTI Urine culture: Multiple organisms, no sensitivities Completed 5-day course of antibiotics including 4 days of IV ceftriaxone and 1 day of cefdinir HTN BP persistently elevated Started on lisinopril 5 mg on 12/11, BP continues to be not at goal, will increase lisinopril to 10 mg daily Sacral Erythema/wound b/l stage 2, POA wound care consulted daily wound care Dementia Anxiety per son on admission pt does not take any medications at home despite med list; therefore will not continue any meds documented DVT PROPHYLAXIS SQ Lovenox Dispo: SNF placement pending Patient seen in collaboration with Dr. Canas. Admission and Anticipated Discharge Date Admission Date: December 07, 2022 Supervising Physician Co-Signing Physician Notes Attending Addendum: care coordinated with MARYAM Madrid please refer to her notes for full details, I agree with her notes patient seen and examined, records reviewed by myself as well diagnoses and plan of care as per MARYAM Madrid's notes Palmer Canas MD Subjective Follow-up for generalized weakness, UTI, constipation. Patient seen and examined. Resting in bed, having breakfast. Offers no complaints. Denies chest pain and shortness of breath. No abdominal pain or nausea. + BM Physical Exam Constitutional: WD/WN, vitals as above no acute distress Respiratory: normal respiratory effort, lungs clear to auscultation Cardiovascular: Rate/Rhythm: regular rate and regular rhythm Vessels: normal peripheral pulses Extremities: + edema (Trace edema BLE) Gastrointestinal (Abdomen): Percussion/Palpation: abdomen soft; abdomen nontender Skin: no rashes, warm and dry Neurologic: no focal motor deficits Psychiatric: Orientation: alert, oriented to person and oriented to place; + not oriented to time Insight: + limited insight Results & Data Results & Data Vital Signs (Past 12 Hours) Vital Signs Temp Pulse Resp BP Pulse Ox O2 Del Method 12/14/22 08:06 36.3 C L 69 18 173/88 H 99 Room Air
[2022-12-14] MEDS ORDERED: lisinopril 5 MG TAB PO ONE (12:45)
[2022-12-14] MEDS: ENOXAPARIN INJ 40 MG/0.4 ML SYR SQ SCH (20:06)
[2022-12-15 07:08] LABS: BUN Creatinine Ratio 40.4 (10-20); Calcium 9.5 mg/dl (8.6-10.3); Creatinine Clr Calc Pharmacy 70.5 ml/min; Est GFR (African American) 95.9 ml/min; Est GFR (Non-African American) 82.8 ml/min
[2022-12-15] MEDS: POLYETHYLENE (MIRALAX) 17 GM PACK PO SCH (08:06)
[2022-12-15] MEDS: lisinopril 10 MG TAB PO SCH (08:17)
[2022-12-15] MEDS: DOCUSATE SODIUM/SENNA 50/8.6MG TAB PO SCH (08:18)
--- NOTE | 2022-12-15 18:21 | Hospitalist Progress Note ---
Date of Service December 15, 2022 Assessment & Plan (1) Acute UTI (urinary tract infection): (2) Abdominal pain: (3) Dehydration: (4) Anxiety: Plan (1) Acute UTI (urinary tract infection): (2) Abdominal pain: (3) Dehydration: (4) Anxiety: Plan This is an 87-year-old female who has underlying dementia and anxiety who presents to ED secondary to abdominal pain. Abdominal Pain likely secondary to constipation Acute UTI CT ABD/pelvis: Thickening of the rectal wall with perirectal fat stranding may represent proctitis, underlying mass lesion cannot be excluded. abdominal pain likely in setting of constipation has resolved after bowel movement BM x 2 on 12/12 Consider outpatient colonoscopy Continue bowel regimen UA consistent with UTI Urine culture: Multiple organisms, no sensitivities Completed 5-day course of antibiotics including 4 days of IV ceftriaxone and 1 day of cefdinir HTN BP persistently elevated Started on lisinopril 5 mg on 12/11, BP continues to be not at goal, -> increased lisinopril to 10 mg daily Sacral Erythema/wound b/l stage 2, POA wound care consulted daily wound care Dementia Anxiety per son on admission pt does not take any medications at home despite med list; therefore will not continue any meds documented DVT PROPHYLAXIS SQ Lovenox Dispo:SNF placement pending Admission and Anticipated Discharge Date Admission Date: December 07, 2022 Subjective ff up for UTI, etc seen resting in bedside chair, comfortable oriented x 1-2 answers most questions appropriately denies abdominal pain, urinary problems, fever/chills no chest pain, dyspnea, palpitations, dizziness no other symptoms Review of Systems Review of Systems: All systems reviewed & are unremarkable except as noted in Subjective Physical Exam Physical Exam: Constitutional: W D/WN, Elderly, F, in NAD Head: Normo cephalic, Atraumat ic, + bruising to superior aspect of left eye Eyes: P ERRL, conjunctivae normal, anicteric sclerae ENMT: ex ternal ear and nos e normal, orophary nx normal Neck: n ormal visual inspe ction Respiratory: normal respirato ry effort, lungs c lear to auscultati on, no wheeze, ral es, rhonchi. Cardi ovascular: RRR, n o murmur, no edema Chest: normal ins pection of chest A bdomen: normal bow el sounds, soft, n ontender Musculosk eletal: moves extr emities Skin: no rashes, warm and d ry normal turgor Neurologic:awake, alert, answers si mple questions, no face palsy, moves extremities Results & Data Results & Data Vital Signs (Past 12 Hours) Vital Signs Temp Pulse Resp BP Pulse Ox O2 Del Method 12/15/22 15:57 36.8 C 60 18 183/94 H 96 Room Air 12/15/22 08:20 161/89 H 12/15/22 08:13 36.7 C 54 L 18 97 Room Air Laboratory Results 12/15/22 Range/Units 06:19 Sodium 138 (136-145) mmol/L Potassium 4.0 (3.5-5.1) mmol/L Chloride 107 (98-107) mmol/L Carbon Dioxide 25 (21-32) mmol/L Anion Gap 6 (3-11) BUN 23 (6-23) mg/dl Creatinine 0.57 L (0.6-1.2) mg/dl Est Cr Clr Drug Dosing 70.5 ml/min Est GFR ( Amer) 95.9 ml/min Est GFR (Non-Af Amer) 82.8 ml/min BUN/Creatinine Ratio 40.4 H (10-20) Glucose 109 H (70-99(Fasting)) mg/dl Calcium 9.5 (8.6-10.3) mg/dl Medications Administered Current Inpatient Medications Acetaminophen (Acetaminophen 325 Mg Tab) 650 mg PO Q4H PRN PRN Reason: pain/fever Stop: 01/05/23 18:26 Al Hydrox/Mg Hydrox/Simethicone (Aluminum/Magnesium Susp 30 Ml Udc) 30 ml PO Q6H PRN PRN Reason: Dyspepsia Stop: 01/05/23 18:26 Enoxaparin Sodium (Enoxaparin Inj 40 Mg/0.4 Ml Syr) 40 mg SQ HS BRITNI Stop: 01/05/23 20:59 Last Admin: 12/14/22 20:06 Dose: 40 mg Lisinopril (Lisinopril 10 Mg Tab) 10 mg PO QAM BRITNI Stop: 01/14/23 08:59 Last Admin: 12/15/22 08:17 Dose: 10 mg Magnesium Hydroxide (Magnesium Hydroxide Susp 30 Ml Udc) 30 ml PO Q6H PRN PRN Reason: Constipation Stop: 01/05/23 18:26 Last Admin: 12/10/22 07:51 Dose: 30 ml Nystatin (Nystatin Cr 15 Gm Tube) 1 appln EXT TID PRN PRN Reason: rash Stop: 01/06/23 09:49 Ondansetron HCl (Ondansetron Inj 2 Mg/Ml 2 Ml Vial) 4 mg IV Q6H PRN PRN Reason: Nausea Stop: 01/05/23 18:26 Polyethylene Glycol (Polyethylene (Miralax) 17 Gm Pack) 17 gm PO DAILY BRITNI Stop: 01/09/23 18:44 Last Admin: 12/15/22 08:06 Dose: 17 gm Senna/Docusate Sodium (Docusate Sodium/Senna 50/8.6mg Tab) 1 tab PO QAM [facility] Stop: 01/05/23 18:44 Last Admin: 12/15/22 08:18 Dose: 1 tab
[2022-12-15] MEDS: ENOXAPARIN INJ 40 MG/0.4 ML SYR SQ SCH (21:01)
[2022-12-16] MEDS: DOCUSATE SODIUM/SENNA 50/8.6MG TAB PO SCH (07:47)
[2022-12-16] MEDS: POLYETHYLENE (MIRALAX) 17 GM PACK PO SCH (07:47)
[2022-12-16] MEDS: lisinopril 10 MG TAB PO SCH (07:47)
--- NOTE | 2022-12-16 13:32 | Hospitalist Progress Note ---
Date of Service December 16, 2022 Assessment & Plan (1) Acute UTI (urinary tract infection): (2) Abdominal pain: (3) Dehydration: (4) Anxiety: Plan (1) Acute UTI (urinary tract infection): (2) Abdominal pain: (3) Dehydration: (4) Anxiety: Plan This is an 87-year-old female who has underlying dementia and anxiety who presents to ED secondary to abdominal pain. Abdominal Pain likely secondary to constipation Acute UTI CT ABD/pelvis: Thickening of the rectal wall with perirectal fat stranding may represent proctitis, underlying mass lesion cannot be excluded. abdominal pain likely in setting of constipation has resolved after bowel movement BM x 2 on 12/12 Consider outpatient colonoscopy Continue bowel regimen UA consistent with UTI Urine culture: Multiple organisms, no sensitivities Completed 5-day course of antibiotics including 4 days of IV ceftriaxone and 1 day of cefdinir HTN BP persistently elevated Started on lisinopril 5 mg on 12/11, then -> increased lisinopril to 10 mg daily cont. to monitor BP Sacral Erythema/wound b/l stage 2, POA wound care consulted daily wound care Dementia Anxiety per son on admission pt does not take any medications at home despite med list; therefore will not continue any meds documented DVT PROPHYLAXIS SQ Lovenox Dispo:SNF placement pending Admission and Anticipated Discharge Date Admission Date: December 07, 2022 Subjective ff up for UTI, etc seen resting in bedside chair, comfortable oriented x 1-2 answers most questions appropriately denies abdominal pain, urinary problems, fever/chills no chest pain, dyspnea, palpitations, dizziness no other symptoms Review of Systems Review of Systems: All systems reviewed & are unremarkable except as noted in Subjective Physical Exam Physical Exam: Constitutional: W D/WN, Elderly, F, in NAD Head: Normo cephalic, Atraumat ic, + bruising to superior aspect of left eye Eyes: P ERRL, conjunctivae normal, anicteric sclerae ENMT: ex ternal ear and nos e normal, orophary nx normal Neck: n ormal visual inspe ction Respiratory: normal respirato ry effort, lungs c lear to auscultati on, no wheeze, ral es, rhonchi. Cardi ovascular: RRR, n o murmur, no edema Chest: normal ins pection of chest A bdomen: normal bow el sounds, soft, n ontender Musculosk eletal: moves extr emities Skin: no rashes, warm and d ry normal turgor Neurologic:awake, alert, answers si mple questions, no face palsy, moves extremities Results & Data Results & Data Vital Signs (Past 12 Hours) Vital Signs Temp Pulse Resp BP Pulse Ox O2 Del Method 12/16/22 07:33 Room Air 12/16/22 07:30 36.8 C 56 L 18 168/75 H 97 Room Air Medications Administered Current Inpatient Medications Acetaminophen (Acetaminophen 325 Mg Tab) 650 mg PO Q4H PRN PRN Reason: pain/fever Stop: 01/05/23 18:26 Al Hydrox/Mg Hydrox/Simethicone (Aluminum/Magnesium Susp 30 Ml Udc) 30 ml PO Q6H PRN PRN Reason: Dyspepsia Stop: 01/05/23 18:26 Enoxaparin Sodium (Enoxaparin Inj 40 Mg/0.4 Ml Syr) 40 mg SQ HS BRITNI Stop: 01/05/23 20:59 Last Admin: 12/15/22 21:01 Dose: 40 mg Lisinopril (Lisinopril 10 Mg Tab) 10 mg PO QAM [facility] Stop: 01/14/23 08:59 Last Admin: 12/16/22 07:47 Dose: 10 mg Magnesium Hydroxide (Magnesium Hydroxide Susp 30 Ml Udc) 30 ml PO Q6H PRN PRN Reason: Constipation Stop: 01/05/23 18:26 Last Admin: 12/10/22 07:51 Dose: 30 ml Nystatin (Nystatin Cr 15 Gm Tube) 1 appln EXT TID PRN PRN Reason: rash Stop: 01/06/23 09:49 Ondansetron HCl (Ondansetron Inj 2 Mg/Ml 2 Ml Vial) 4 mg IV Q6H PRN PRN Reason: Nausea Stop: 01/05/23 18:26 Polyethylene Glycol (Polyethylene (Miralax) 17 Gm Pack) 17 gm PO DAILY [facility] Stop: 01/09/23 18:44 Last Admin: 12/16/22 07:47 Dose: 17 gm Senna/Docusate Sodium (Docusate Sodium/Senna 50/8.6mg Tab) 1 tab PO QAM [facility] Stop: 01/05/23 18:44 Last Admin: 12/16/22 07:47 Dose: 1 tab
[2022-12-16] MEDS: ENOXAPARIN INJ 40 MG/0.4 ML SYR SQ SCH (19:48)
[2022-12-17] MEDS: lisinopril 10 MG TAB PO SCH (07:50)
[2022-12-17] MEDS: POLYETHYLENE (MIRALAX) 17 GM PACK PO SCH (07:51)
[2022-12-17] MEDS: DOCUSATE SODIUM/SENNA 50/8.6MG TAB PO SCH (07:51)
--- NOTE | 2022-12-17 11:50 | Hospitalist Progress Note ---
Date of Service December 17, 2022 Assessment & Plan (1) Acute UTI (urinary tract infection): (2) Abdominal pain: (3) Dehydration: (4) Anxiety: Plan (1) Acute UTI (urinary tract infection): (2) Abdominal pain: (3) Dehydration: (4) Anxiety: Plan This is an 87-year-old female who has underlying dementia and anxiety who presents to ED secondary to abdominal pain. Abdominal Pain likely secondary to constipation Acute UTI CT ABD/pelvis: Thickening of the rectal wall with perirectal fat stranding may represent proctitis, underlying mass lesion cannot be excluded. abdominal pain likely in setting of constipation has resolved after bowel movement BM x 2 on 12/12 Consider outpatient colonoscopy Continue bowel regimen UA consistent with UTI Urine culture: Multiple organisms, no sensitivities Completed 5-day course of antibiotics including 4 days of IV ceftriaxone and 1 day of cefdinir HTN BP persistently elevated Started on lisinopril 5 mg on 12/11, then -> increased lisinopril to 10 mg daily cont. to monitor BP Sacral Erythema/wound b/l stage 2, POA wound care consulted daily wound care Dementia Anxiety per son on admission pt does not take any medications at home despite med list; therefore will not continue any meds documented DVT PROPHYLAXIS SQ Lovenox Dispo:SNF placement pending Admission and Anticipated Discharge Date Admission Date: December 07, 2022 Subjective ff up for UTI, etc seen resting in bedside chair, comfortable oriented x 1-2 answers most questions appropriately denies abdominal pain, urinary problems, fever/chills no chest pain, dyspnea, palpitations, dizziness no other symptoms Review of Systems Review of Systems: All systems reviewed & are unremarkable except as noted in Subjective Physical Exam Physical Exam: Constitutional: W D/WN, Elderly, F, in NAD Head: Normo cephalic, Atraumat ic, + bruising to superior aspect of left eye Eyes: P ERRL, conjunctivae normal, anicteric sclerae ENMT: ex ternal ear and nos e normal, orophary nx normal Neck: n ormal visual inspe ction Respiratory: normal respirato ry effort, lungs c lear to auscultati on, no wheeze, ral es, rhonchi. Cardi ovascular: RRR, n o murmur, no edema Chest: normal ins pection of chest A bdomen: normal bow el sounds, soft, n ontender Musculosk eletal: moves extr emities Skin: no rashes, warm and d ry normal turgor Neurologic:awake, alert, answers si mple questions, no face palsy, moves extremities Results & Data Results & Data Vital Signs (Past 12 Hours) Vital Signs Temp Pulse Resp BP Pulse Ox O2 Del Method 12/17/22 07:33 36.8 C 53 L 16 125/63 95 Room Air 12/17/22 07:18 Room Air Medications Administered Current Inpatient Medications Acetaminophen (Acetaminophen 325 Mg Tab) 650 mg PO Q4H PRN PRN Reason: pain/fever Stop: 01/05/23 18:26 Al Hydrox/Mg Hydrox/Simethicone (Aluminum/Magnesium Susp 30 Ml Udc) 30 ml PO Q6H PRN PRN Reason: Dyspepsia Stop: 01/05/23 18:26 Enoxaparin Sodium (Enoxaparin Inj 40 Mg/0.4 Ml Syr) 40 mg SQ HS [facility] Stop: 01/05/23 20:59 Last Admin: 12/16/22 19:48 Dose: 40 mg Lisinopril (Lisinopril 10 Mg Tab) 10 mg PO QAM [facility] Stop: 01/14/23 08:59 Last Admin: 12/17/22 07:50 Dose: 10 mg Magnesium Hydroxide (Magnesium Hydroxide Susp 30 Ml Udc) 30 ml PO Q6H PRN PRN Reason: Constipation Stop: 01/05/23 18:26 Last Admin: 12/10/22 07:51 Dose: 30 ml Nystatin (Nystatin Cr 15 Gm Tube) 1 appln EXT TID PRN PRN Reason: rash Stop: 01/06/23 09:49 Ondansetron HCl (Ondansetron Inj 2 Mg/Ml 2 Ml Vial) 4 mg IV Q6H PRN PRN Reason: Nausea Stop: 01/05/23 18:26 Polyethylene Glycol (Polyethylene (Miralax) 17 Gm Pack) 17 gm PO DAILY [facility] Stop: 01/09/23 18:44 Last Admin: 12/17/22 07:51 Dose: 17 gm Senna/Docusate Sodium (Docusate Sodium/Senna 50/8.6mg Tab) 1 tab PO QAM [facility] Stop: 01/05/23 18:44 Last Admin: 12/17/22 07:51 Dose: 1 tab
[2022-12-17] MEDS: ENOXAPARIN INJ 40 MG/0.4 ML SYR SQ SCH (20:54)
[2022-12-18] MEDS: DOCUSATE SODIUM/SENNA 50/8.6MG TAB PO SCH (08:14)
[2022-12-18] MEDS: POLYETHYLENE (MIRALAX) 17 GM PACK PO SCH (08:14)
[2022-12-18] MEDS: lisinopril 10 MG TAB PO SCH (08:15)
--- NOTE | 2022-12-18 08:16 | Hospitalist Progress Note ---
Date of Service December 18, 2022 Assessment & Plan (1) Acute UTI (urinary tract infection): (2) Abdominal pain: (3) Dehydration: (4) Anxiety: Plan (1) Acute UTI (urinary tract infection): (2) Abdominal pain: (3) Dehydration: (4) Anxiety: Plan This is an 87-year-old female who has underlying dementia and anxiety who presents to ED secondary to abdominal pain. Abdominal Pain likely secondary to constipation Acute UTI CT ABD/pelvis: Thickening of the rectal wall with perirectal fat stranding may represent proctitis, underlying mass lesion cannot be excluded. abdominal pain likely in setting of constipation has resolved after bowel movement BM x 2 on 12/12 Consider outpatient colonoscopy Continue bowel regimen UA consistent with UTI Urine culture: Multiple organisms, no sensitivities Completed 5-day course of antibiotics including 4 days of IV ceftriaxone and 1 day of cefdinir HTN BP persistently elevated Started on lisinopril 5 mg on 12/11, then -> increased lisinopril to 10 mg daily cont. to monitor BP Sacral Erythema/wound b/l stage 2, POA wound care consulted daily wound care Dementia Anxiety per son on admission pt does not take any medications at home despite med list; therefore will not continue any meds documented DVT PROPHYLAXIS SQ Lovenox Dispo:SNF placement pending Admission and Anticipated Discharge Date Admission Date: December 07, 2022 Subjective ff up for UTI, etc seen resting in bedside chair, comfortable oriented x 1-2 answers most questions appropriately denies abdominal pain, urinary problems, fever/chills no chest pain, dyspnea, palpitations, dizziness no other symptoms Review of Systems Review of Systems: All systems reviewed & are unremarkable except as noted in Subjective Physical Exam Physical Exam: Constitutional: W D/WN, Elderly, F, in NAD Head: Normo cephalic, Atraumat ic, + bruising to superior aspect of left eye - resolv ed Eyes: PERRL, c onjunctivae normal , anicteric sclera e ENMT: external ear and nose kay l, oropharynx norm al Neck: normal v isual inspection R espiratory: kay l respiratory effo rt, lungs clear to auscultation, no wheeze, rales, rho nchi. Cardiovascul ar: RRR, no murmu r, no edema Chest: normal inspection of chest Abdomen: normal bowel soun ds, soft, nontende r Musculoskeletal: moves extremities Skin: no rashes, warm and dry nor mal turgor Neurolo gic:awake, alert, answers simple qu estions, no face p alsy, moves extrem ities Results & Data Results & Data Vital Signs (Past 12 Hours) Vital Signs Temp Pulse Resp BP BP Pulse Ox O2 Del Method 12/18/22 07:25 Room Air 12/18/22 07:08 36.5 C 62 18 138/67 95 Room Air 12/17/22 20:54 Room Air 12/17/22 22:22 36.9 C 55 L 18 154/79 H 95 Room Air Medications Administered Current Inpatient Medications Acetaminophen (Acetaminophen 325 Mg Tab) 650 mg PO Q4H PRN PRN Reason: pain/fever Stop: 01/05/23 18:26 Al Hydrox/Mg Hydrox/Simethicone (Aluminum/Magnesium Susp 30 Ml Udc) 30 ml PO Q6H PRN PRN Reason: Dyspepsia Stop: 01/05/23 18:26 Enoxaparin Sodium (Enoxaparin Inj 40 Mg/0.4 Ml Syr) 40 mg SQ HS [facility] Stop: 01/05/23 20:59 Last Admin: 12/17/22 20:54 Dose: 40 mg Lisinopril (Lisinopril 10 Mg Tab) 10 mg PO QAM [facility] Stop: 01/14/23 08:59 Last Admin: 12/18/22 08:15 Dose: 10 mg Magnesium Hydroxide (Magnesium Hydroxide Susp 30 Ml Udc) 30 ml PO Q6H PRN PRN Reason: Constipation Stop: 01/05/23 18:26 Last Admin: 12/10/22 07:51 Dose: 30 ml Nystatin (Nystatin Cr 15 Gm Tube) 1 appln EXT TID PRN PRN Reason: rash Stop: 01/06/23 09:49 Ondansetron HCl (Ondansetron Inj 2 Mg/Ml 2 Ml Vial) 4 mg IV Q6H PRN PRN Reason: Nausea Stop: 01/05/23 18:26 Polyethylene Glycol (Polyethylene (Miralax) 17 Gm Pack) 17 gm PO DAILY [facility] Stop: 01/09/23 18:44 Last Admin: 12/18/22 08:14 Dose: Not Given Senna/Docusate Sodium (Docusate Sodium/Senna 50/8.6mg Tab) 1 tab PO QAM [facility] Stop: 01/05/23 18:44 Last Admin: 12/18/22 08:14 Dose: Not Given
[2022-12-18] MEDS: ENOXAPARIN INJ 40 MG/0.4 ML SYR SQ SCH (21:02)
[2022-12-19] MEDS: DOCUSATE SODIUM/SENNA 50/8.6MG TAB PO SCH (08:15)
[2022-12-19] MEDS: POLYETHYLENE (MIRALAX) 17 GM PACK PO SCH (08:16)
[2022-12-19] MEDS: lisinopril 10 MG TAB PO SCH (08:16)
--- NOTE | 2022-12-19 16:44 | Hospitalist Progress Note ---
Date of Service December 19, 2022 Assessment & Plan (1) Acute UTI (urinary tract infection): (2) Abdominal pain: (3) Dehydration: (4) Anxiety: Plan (1) Acute UTI (urinary tract infection): (2) Abdominal pain: (3) Dehydration: (4) Anxiety: Plan This is an 87-year-old female who has underlying dementia and anxiety who presents to ED secondary to abdominal pain. Abdominal Pain likely secondary to constipation Acute UTI CT ABD/pelvis: Thickening of the rectal wall with perirectal fat stranding may represent proctitis, underlying mass lesion cannot be excluded. abdominal pain likely in setting of constipation has resolved after bowel movement BM x 2 on 12/12 Consider outpatient colonoscopy Continue bowel regimen UA consistent with UTI Urine culture: Multiple organisms, no sensitivities Completed 5-day course of antibiotics including 4 days of IV ceftriaxone and 1 day of cefdinir HTN BP persistently elevated Started on lisinopril 5 mg on 12/11, then -> increased lisinopril to 10 mg daily cont. to monitor BP Sacral Erythema/wound b/l stage 2, POA wound care consulted daily wound care Dementia Anxiety per son on admission pt does not take any medications at home despite med list; therefore will not continue any meds documented DVT PROPHYLAXIS SQ Lovenox Dispo:SNF placement pending Admission and Anticipated Discharge Date Admission Date: December 07, 2022 Subjective ff up for UTI, etc seen resting in bedside chair, comfortable oriented x 1-2 answers most questions appropriately denies abdominal pain, urinary problems, fever/chills no chest pain, dyspnea, palpitations, dizziness no other symptoms Pt's son present at the bedside - thinking about placement at [facility] [place] Review of Systems Review of Systems: All systems reviewed & are unremarkable except as noted in Subjective Physical Exam Physical Exam: Constitutional: W D/WN, Elderly, F, in NAD Head: Normo cephalic, Atraumat ic, + bruising to superior aspect of left eye - resolv ed Eyes: PERRL, c onjunctivae normal , anicteric sclera e ENMT: external ear and nose kay l, oropharynx norm al Neck: normal v isual inspection R espiratory: kay l respiratory effo rt, lungs clear to auscultation, no wheeze, rales, rho nchi. Cardiovascul ar: RRR, no murmu r, no edema Chest: normal inspection of chest Abdomen: normal bowel soun ds, soft, nontende r Musculoskeletal: moves extremities Skin: no rashes, warm and dry nor mal turgor Neurolo gic:awake, alert, answers simple qu estions, no face p alsy, moves extrem ities Results & Data Results & Data Vital Signs (Past 12 Hours) Vital Signs Temp Pulse Resp BP Pulse Ox O2 Del Method 12/19/22 15:24 36.9 C 54 L 16 139/57 L 97 Room Air 12/19/22 08:00 Room Air 12/19/22 07:38 36.6 C 56 L 16 145/93 H 96 Room Air Medications Administered Current Inpatient Medications Acetaminophen (Acetaminophen 325 Mg Tab) 650 mg PO Q4H PRN PRN Reason: pain/fever Stop: 01/05/23 18:26 Al Hydrox/Mg Hydrox/Simethicone (Aluminum/Magnesium Susp 30 Ml Udc) 30 ml PO Q6H PRN PRN Reason: Dyspepsia Stop: 01/05/23 18:26 Enoxaparin Sodium (Enoxaparin Inj 40 Mg/0.4 Ml Syr) 40 mg SQ HS [facility] Stop: 01/05/23 20:59 Last Admin: 12/18/22 21:02 Dose: 40 mg Lisinopril (Lisinopril 10 Mg Tab) 10 mg PO QAM [facility] Stop: 01/14/23 08:59 Last Admin: 12/19/22 08:16 Dose: 10 mg Magnesium Hydroxide (Magnesium Hydroxide Susp 30 Ml Udc) 30 ml PO Q6H PRN PRN Reason: Constipation Stop: 01/05/23 18:26 Last Admin: 12/10/22 07:51 Dose: 30 ml Nystatin (Nystatin Cr 15 Gm Tube) 1 appln EXT TID PRN PRN Reason: rash Stop: 01/06/23 09:49 Ondansetron HCl (Ondansetron Inj 2 Mg/Ml 2 Ml Vial) 4 mg IV Q6H PRN PRN Reason: Nausea Stop: 01/05/23 18:26 Polyethylene Glycol (Polyethylene (Miralax) 17 Gm Pack) 17 gm PO DAILY [facility] Stop: 01/09/23 18:44 Last Admin: 12/19/22 08:16 Dose: 17 gm Senna/Docusate Sodium (Docusate Sodium/Senna 50/8.6mg Tab) 1 tab PO QAM [facility] Stop: 01/05/23 18:44 Last Admin: 12/19/22 08:15 Dose: 1 tab
[2022-12-19] MEDS: ENOXAPARIN INJ 40 MG/0.4 ML SYR SQ SCH (20:49)
[2022-12-20] MEDS: lisinopril 10 MG TAB PO SCH (12:50)
[2022-12-20] MEDS: POLYETHYLENE (MIRALAX) 17 GM PACK PO SCH (12:51)
[2022-12-20] MEDS: DOCUSATE SODIUM/SENNA 50/8.6MG TAB PO SCH (12:51)
--- NOTE | 2022-12-20 15:58 | Hospitalist Progress Note ---
Date of Service December 20, 2022 Assessment & Plan (1) Acute UTI (urinary tract infection): (2) Abdominal pain: (3) Dehydration: (4) Anxiety: Plan (1) Acute UTI (urinary tract infection): (2) Abdominal pain: (3) Dehydration: (4) Anxiety: Plan This is an 87-year-old female who has underlying dementia and anxiety who presents to ED secondary to abdominal pain. Abdominal Pain likely secondary to constipation Acute UTI CT ABD/pelvis: Thickening of the rectal wall with perirectal fat stranding may represent proctitis, underlying mass lesion cannot be excluded. abdominal pain likely in setting of constipation has resolved after bowel movement BM x 2 on 12/12 Consider outpatient colonoscopy Continue bowel regimen UA consistent with UTI Urine culture: Multiple organisms, no sensitivities Completed 5-day course of antibiotics including 4 days of IV ceftriaxone and 1 day of cefdinir HTN BP persistently elevated Started on lisinopril 5 mg on 12/11, then -> increased lisinopril to 10 mg daily cont. to monitor BP Sacral Erythema/wound b/l stage 2, POA wound care consulted daily wound care Dementia Anxiety per son on admission pt does not take any medications at home despite med list; therefore will not continue any meds documented DVT PROPHYLAXIS SQ Lovenox Dispo:SNF placement pending Admission and Anticipated Discharge Date Admission Date: December 07, 2022 Subjective ff up for UTI, etc seen resting in bedside chair, comfortable oriented x 1-2 answers most questions appropriately denies abdominal pain, urinary problems, fever/chills no chest pain, dyspnea, palpitations, dizziness no other symptoms Pt's son present at the bedside yesterday - thinking about placement at [facility], CM involved Review of Systems Review of Systems: All systems reviewed & are unremarkable except as noted in Subjective Physical Exam Physical Exam: Constitutional: W D/WN, Elderly, F, in NAD Head: Normo cephalic, Atraumat ic Eyes: PERRL, c onjunctivae normal , anicteric sclera e ENMT: external ear and nose kay l, oropharynx norm al Neck: normal v isual inspection R espiratory: kay l respiratory effo rt, lungs clear to auscultation, no wheeze, rales, rho nchi. Cardiovascul ar: RRR, no murmu r, no edema Chest: normal inspection of chest Abdomen: normal bowel soun ds, soft, nontende r Musculoskeletal: moves extremities Skin: no rashes, warm and dry nor mal turgor Neurolo gic:awake, alert, answers simple qu estions, no face p alsy, moves extrem ities Results & Data Results & Data Vital Signs (Past 12 Hours) Vital Signs Temp Pulse Resp BP Pulse Ox O2 Del Method 12/20/22 07:47 36.4 C L 55 L 16 159/84 H 97 Room Air Medications Administered Current Inpatient Medications Acetaminophen (Acetaminophen 325 Mg Tab) 650 mg PO Q4H PRN PRN Reason: pain/fever Stop: 01/05/23 18:26 Al Hydrox/Mg Hydrox/Simethicone (Aluminum/Magnesium Susp 30 Ml Udc) 30 ml PO Q6H PRN PRN Reason: Dyspepsia Stop: 01/05/23 18:26 Enoxaparin Sodium (Enoxaparin Inj 40 Mg/0.4 Ml Syr) 40 mg SQ HS [facility] Stop: 01/05/23 20:59 Last Admin: 12/19/22 20:49 Dose: Not Given Lisinopril (Lisinopril 10 Mg Tab) 10 mg PO QAM [facility] Stop: 01/14/23 08:59 Last Admin: 12/20/22 12:50 Dose: 10 mg Magnesium Hydroxide (Magnesium Hydroxide Susp 30 Ml Udc) 30 ml PO Q6H PRN PRN Reason: Constipation Stop: 01/05/23 18:26 Last Admin: 12/10/22 07:51 Dose: 30 ml Nystatin (Nystatin Cr 15 Gm Tube) 1 appln EXT TID PRN PRN Reason: rash Stop: 01/06/23 09:49 Ondansetron HCl (Ondansetron Inj 2 Mg/Ml 2 Ml Vial) 4 mg IV Q6H PRN PRN Reason: Nausea Stop: 01/05/23 18:26 Polyethylene Glycol (Polyethylene (Miralax) 17 Gm Pack) 17 gm PO DAILY [facility] Stop: 01/09/23 18:44 Last Admin: 12/20/22 12:51 Dose: 17 gm Senna/Docusate Sodium (Docusate Sodium/Senna 50/8.6mg Tab) 1 tab PO QAM [facility] Stop: 01/05/23 18:44 Last Admin: 12/20/22 12:51 Dose: 1 tab
[2022-12-20] MEDS: ENOXAPARIN INJ 40 MG/0.4 ML SYR SQ SCH (20:21)
[2022-12-21] MEDS: POLYETHYLENE (MIRALAX) 17 GM PACK PO SCH (09:14)
[2022-12-21] MEDS: DOCUSATE SODIUM/SENNA 50/8.6MG TAB PO SCH (09:15)
[2022-12-21] MEDS: lisinopril 10 MG TAB PO SCH (09:16)
--- NOTE | 2022-12-21 17:08 | Hospitalist Progress Note ---
Date of Service December 21, 2022 Assessment & Plan (1) Acute UTI (urinary tract infection): (2) Abdominal pain: (3) Dehydration: (4) Anxiety: Plan (1) Acute UTI (urinary tract infection): (2) Abdominal pain: (3) Dehydration: (4) Anxiety: Plan This is an 87-year-old female who has underlying dementia and anxiety who presents to ED secondary to abdominal pain. Abdominal Pain likely secondary to constipation Acute UTI CT ABD/pelvis: Thickening of the rectal wall with perirectal fat stranding may represent proctitis, underlying mass lesion cannot be excluded. abdominal pain likely in setting of constipation has resolved after bowel movement BM x 2 on 12/12 Consider outpatient colonoscopy Continue bowel regimen UA consistent with UTI Urine culture: Multiple organisms, no sensitivities Completed 5-day course of antibiotics including 4 days of IV ceftriaxone and 1 day of cefdinir HTN BP persistently elevated Started on lisinopril 5 mg on 12/11, then -> increased lisinopril to 10 mg daily cont. to monitor BP Sacral Erythema/wound b/l stage 2, POA wound care consulted daily wound care Dementia Anxiety per son on admission pt does not take any medications at home despite med list; therefore will not continue any meds documented DVT PROPHYLAXIS SQ Lovenox Dispo:SNF placement pending, likely to [facility] Admission and Anticipated Discharge Date Admission Date: December 07, 2022 Subjective ff up for UTI, etc seen resting in bedside chair, comfortable, doing puzzles oriented x 1-2 answers most questions appropriately denies abdominal pain, urinary problems, fever/chills no chest pain, dyspnea, palpitations, dizziness no other symptoms Plan to Dc to [facility], CM involved Review of Systems Review of Systems: All systems reviewed & are unremarkable except as noted in Subjective Physical Exam Physical Exam: Constitutional: W D/WN, Elderly, F, in NAD Head: Normo cephalic, Atraumat ic Eyes: PERRL, c onjunctivae normal , anicteric sclera e ENMT: external ear and nose kay l, oropharynx norm al Neck: normal v isual inspection R espiratory: kay l respiratory effo rt, lungs clear to auscultation, no wheeze, rales, rho nchi. Cardiovascul ar: RRR, no murmu r, no edema Chest: normal inspection of chest Abdomen: normal bowel soun ds, soft, nontende r Musculoskeletal: moves extremities Skin: no rashes, warm and dry nor mal turgor Neurolo gic:awake, alert, answers simple qu estions, no face p alsy, moves extrem ities Results & Data Results & Data Vital Signs (Past 12 Hours) Vital Signs Temp Pulse Resp BP BP Pulse Ox O2 Del Method 12/21/22 15:57 36.7 C 51 L 16 132/74 95 Room Air 12/21/22 07:33 Room Air 12/21/22 06:53 36.7 C 62 18 164/80 H 95 Room Air Medications Administered Current Inpatient Medications Acetaminophen (Acetaminophen 325 Mg Tab) 650 mg PO Q4H PRN PRN Reason: pain/fever Stop: 01/05/23 18:26 Al Hydrox/Mg Hydrox/Simethicone (Aluminum/Magnesium Susp 30 Ml Udc) 30 ml PO Q6H PRN PRN Reason: Dyspepsia Stop: 01/05/23 18:26 Enoxaparin Sodium (Enoxaparin Inj 40 Mg/0.4 Ml Syr) 40 mg SQ HS [facility] Stop: 01/05/23 20:59 Last Admin: 12/20/22 20:21 Dose: 40 mg Lisinopril (Lisinopril 10 Mg Tab) 10 mg PO QAM [facility] Stop: 01/14/23 08:59 Last Admin: 12/21/22 09:16 Dose: 10 mg Magnesium Hydroxide (Magnesium Hydroxide Susp 30 Ml Udc) 30 ml PO Q6H PRN PRN Reason: Constipation Stop: 01/05/23 18:26 Last Admin: 12/10/22 07:51 Dose: 30 ml Nystatin (Nystatin Cr 15 Gm Tube) 1 appln EXT TID PRN PRN Reason: rash Stop: 01/06/23 09:49 Ondansetron HCl (Ondansetron Inj 2 Mg/Ml 2 Ml Vial) 4 mg IV Q6H PRN PRN Reason: Nausea Stop: 01/05/23 18:26 Polyethylene Glycol (Polyethylene (Miralax) 17 Gm Pack) 17 gm PO DAILY [facility] Stop: 01/09/23 18:44 Last Admin: 12/21/22 09:14 Dose: Not Given Senna/Docusate Sodium (Docusate Sodium/Senna 50/8.6mg Tab) 1 tab PO QAM [facility] Stop: 01/05/23 18:44 Last Admin: 12/21/22 09:15 Dose: Not Given
[2022-12-21] MEDS: ENOXAPARIN INJ 40 MG/0.4 ML SYR SQ SCH (20:01)
[2022-12-22] MEDS: POLYETHYLENE (MIRALAX) 17 GM PACK PO SCH (07:24)
[2022-12-22] MEDS: DOCUSATE SODIUM/SENNA 50/8.6MG TAB PO SCH (07:24)
[2022-12-22] MEDS: lisinopril 10 MG TAB PO SCH (08:26)
--- NOTE | 2022-12-22 13:19 | Discharge Summary ---
Date of Service December 22, 2022 Admission HPI Per Admitting Provider This is an 87-year-old female who has underlying dementia and anxiety who presents to ED secondary to abdominal pain. History mostly obtained from son Gonzalez and Anthony at bedside. Patient lives with son Gonzalez who is also medical POA. She was brought to ED due to complaints of lower abdominal pain. When she arrived at ED she had a large bowel movement and abdominal pain resolved. Son at bedside feels that pain was related to constipation. Patient has underlying dementia but is able to answer questions. She ambulates with a walker at baseline. Per son she takes 0 medications. Patient currently denies any pain, fever, chills, sweats, lightheadedness, dizzy, chest pain, shortness breath, nausea, vomiting, dysuria, increased urgency or frequency or urination. ROS unreliable in setting of dementia son reports blood in depends and is requesting to check for hemorrhoids. He states he changes her 3-4 times a day as she is incontinent of urine. CT abdomen pelvis was obtained in ED which revealed possible proctitis but otherwise no acute abnormality. Lab work revealed relatively unremarkable CBC, CMP with mild elevation in BUN 37 creatinine 0.73 and elevated BUN to creatinine ratio consistent with mild dehydration. Her urinalysis was concerning for infection. She was empirically treated with 1 g IV Rocephin. Admission Exam Per Admitting Provider Constitutional: WD/WN, Elderly, F, vitals as above, NAD, sitting up in bed, pleasant, conversing easily Head: Normocephalic, Atraumatic, + bruising to superior aspect of left eye Eyes: PERRL, conjunctivae normal, anicteric sclerae ENMT: external ear and nose normal, oropharynx normal Neck: trachea midline, no thyromegaly normal visual inspection Respiratory: normal respiratory effort, lungs clear to auscultation, no wheeze, rales, rhonchi. Normal insp/exp effort, no accessory muscle use Cardiovascular: RRR, no murmur, no edema Vessels: no JVD or carotid bruit Chest: normal inspection of chest Abdomen: normal bowel sounds, soft, nontender, no hepatosplenomegaly Musculoskeletal: no cyanosis or clubbing, extremities motor strength 5/5 Skin: no rashes, warm and dry normal turgor Neurologic: PERRL, EOMI, accommodation nl, no face palsy, no dysarthria CN's II-XI intact bilaterally and moves all extremities Psychiatric: A+Ox2 new self, month, but thought she was in [place], she did know the president, euthymic affect Lymphatic: no cervical or axillary lymphadenopathy : no hemorrhoids, evidence of skin breakdown to sacral area POA Principal Diagnosis Constipation UTI Discharge Exam Constitutional WD/WN, vitals as above no acute distress Respiratory normal respiratory effort, lungs clear to auscultation Cardiovascular Rate/Rhythm: regular rate and regular rhythm Vessels: normal peripheral pulses Extremities: no edema Gastrointestinal (Abdomen) Percussion/Palpation: abdomen soft; abdomen nontender Skin no rashes, warm and dry Neurologic no focal motor deficits Psychiatric Orientation: alert and oriented to person; + not oriented to place and + not oriented to time Insight: + limited insight Discharge Data Allergies Allergy/AdvReac Type Severity Reaction Status Date / Time No Known Allergies Allergy Verified 12/06/22 15:05 Ordered Studies Laboratory Results WBC 3.71 K/ul (4.8-10.8) L 12/08/22 05:55 RBC 3.48 M/uL (4.20-5.40) L 12/08/22 05:55 Hgb 10.7 g/dl (12.0-16.0) L 12/08/22 05:55 Hct 31.1 % (37.0-47.0) L 12/08/22 05:55 MCV 89.4 fL (80.0-100.0) 12/08/22 05:55 MCH 30.7 pg (25.0-34.0) 12/08/22 05:55 MCHC 34.4 g/dL (32.0-36.0) 12/08/22 05:55 RDW Std Deviation 43.4 fL (36.4-46.3) 12/08/22 05:55 RDW Coeff of Kael 13.2 % (11.5-14.5) 12/08/22 05:55 Plt Count 233 K/uL (130-400) 12/08/22 05:55 MPV 9.4 fL (9.4-12.4) 12/08/22 05:55 Immature Gran % (Auto) 0.2 % 12/07/22 07:01 Neut % (Auto) 57.9 % 12/07/22 07:01 Lymph % (Auto) 26.2 % 12/07/22 07:01 [place] % (Auto) 12.1 % 12/07/22 07:01 Eos % (Auto) 3.2 % 12/07/22 07:01 Baso % (Auto) 0.4 % 12/07/22 07:01 Neut # (Auto) 2.87 K/uL (1.40-6.50) 12/07/22 07:01 Lymph # (Auto) 1.30 K/uL (1.2-3.4) 12/07/22 07:01 [place] # (Auto) 0.60 K/uL (0.11-0.59) H 12/07/22 07:01 Eos # (Auto) 0.16 K/uL (0-0.50) 12/07/22 07:01 Baso # (Auto) 0.02 K/uL (0-0.2) 12/07/22 07:01 Immature Gran # (Auto) 0.01 K/uL (0.01-0.20) 12/07/22 07:01 Sodium 138 mmol/L (136-145) 12/15/22 06:19 Potassium 4.0 mmol/L (3.5-5.1) 12/15/22 06:19 Chloride 107 mmol/L (98-107) 12/15/22 06:19 Carbon Dioxide 25 mmol/L (21-32) 12/15/22 06:19 Anion Gap 6 (3-11) 12/15/22 06:19 BUN 23 mg/dl (6-23) 12/15/22 06:19 Creatinine 0.57 mg/dl (0.6-1.2) L 12/15/22 06:19 Est Cr Clr Drug Dosing 70.5 ml/min 12/15/22 06:19 Est GFR ( Amer) 95.9 ml/min 12/15/22 06:19 Est GFR (Non-Af Amer) 82.8 ml/min 12/15/22 06:19 BUN/Creatinine Ratio 40.4 (10-20) H 12/15/22 06:19 Glucose 109 mg/dl (70-99(Fasting)) H 12/15/22 06:19 Calcium 9.5 mg/dl (8.6-10.3) 12/15/22 06:19 Phosphorus 3.2 mg/dl (2.5-4.9) 12/08/22 05:55 Magnesium 1.7 mg/dl (1.7-2.4) 12/08/22 05:55 Total Bilirubin 0.6 mg/dl (0.2-1.0) 12/07/22 07:01 AST 19 U/L (13-39) 12/07/22 07:01 ALT 14 U/L (7-52) 12/07/22 07:01 Alkaline Phosphatase 90 U/L (34-104) 12/07/22 07:01 Total Protein 6.4 gm/dl (6.0-8.3) 12/07/22 07:01 Albumin 3.4 gm/dl (3.4-5.0) 12/07/22 07:01 Globulin 3.0 gm/dl (2.5-4.0) 12/07/22 07:01 Albumin/Globulin Ratio 1.1 (0.9-2) 12/07/22 07:01 Lipase 27 U/L (11-82) 12/06/22 13:40 Urine Color Yellow 12/07/22 Unknown Urine Appearance Turbid (Clear) A 12/07/22 Unknown Urine pH 7.5 (4.5-7.5) 12/07/22 Unknown Ur Specific [place] 1.021 (1.000-1.030) 12/07/22 Unknown Urine Protein Negative (Negative) 12/07/22 Unknown Urine Glucose (UA) Negative (Negative) 12/07/22 Unknown Urine Ketones Negative (Negative) 12/07/22 Unknown Urine Blood Negative (Negative) 12/07/22 Unknown Urine Nitrite Positive (Negative) A 12/07/22 Unknown Urine Bilirubin Negative (Negative) 12/07/22 Unknown Urine Urobilinogen Negative (Negative) 12/07/22 Unknown Ur Leukocyte Esterase Trace (Negative) H 12/07/22 Unknown Urine WBC (Auto) 5-10 /hpf (0-5) H 12/07/22 Unknown Urine RBC (Auto) 5-10 /hpf (0-4) H 12/07/22 Unknown U Hyaline Cast (Auto) 0 /lpf (0-5) 12/07/22 Unknown U Epithel Cells (Auto) 10-20 /lpf (0-5) H 12/07/22 Unknown Urine Bacteria (Auto) Negative (Negative) 12/07/22 Unknown Urine Crystals Not Reportable 12/07/22 Unknown Amorphous Sediment Present (None Prsent) A 12/07/22 Unknown Urine Yeast Not Reportable 12/06/22 14:00 SARS-CoV-2 (PCR) NEGATIVE (Negative) 12/22/22 Unknown Impressions Abdomen/Pelvis CT 12/06/22 13:27 CT abd pelvis wo con CLINICAL HISTORY: lower abdominal pain TECHNIQUE: Helical axial images of the abdomen and pelvis were obtained. Automated dose lowering techniques and/or adjustment according to patient size were utilized for this exam. This exam was performed without intravenous contrast. CT DOSE: 1806.46 mGy.cm COMPARISON: None available at the time of this dictation. FINDINGS: Lower chest: Bibasilar atelectasis versus scarring is seen. Severe atherosclero tic disease and cardiomegaly noted. Liver: Unremarkable. No focal lesions are seen. Gallbladder and biliary tree: Patient is status post cholecystectomy. No intra- or extrahepatic biliary ductal dilation. Pancreas: Unremarkable, no focal lesions. Spleen: Unremarkable. Adrenals: Unremarkable. Kidneys and ureters: Exophytic left renal cyst is seen. Bladder: Diffuse homogeneous wall thickening is seen. Reproductive organs: Unremarkable. Bowel: There is prominent thickening of the rectal wall. Surrounding fat stranding is seen. Numerous diverticula are seen without evidence of di verticulitis. The appendix is normal. A moderate hiatal hernia is seen. Lymph nodes Retroperitoneal: Unremarkable. Pelvic: Unremarkable. Mesenteric: Unremarkable. Peritoneum: Perirectal fat stranding is seen. No fluid collections or pneumoperitoneum is seen. Vessels: Atherosclerotic calcifications are seen. Abdominal wall: Unremarkable. Bones: Degenerative changes in the visualized spine. IMPRESSION: Thickening of the rectal wall with perirectal fat stranding may represent proctitis, underlying mass lesion cannot be excluded. ACT 112: Negative or not required by law. Electronically signed by: Koby Chin M.D. 12/06/2022 2:54 PM Hospital Course (1) Acute UTI (urinary tract infection): (2) Abdominal pain: (3) Dehydration: (4) Anxiety: Plan This is an 87-year-old female who has underlying dementia and anxiety who presented to ED secondary to abdominal pain. Abdominal Pain likely secondary to constipation Acute UTI CT ABD/pelvis: Thickening of the rectal wall with perirectal fat stranding may represent proctitis, underlying mass lesion cannot be excluded. Abdominal pain in the setting of constipation that resolved after bowel movement Last BM 12/21 Consider outpatient colonoscopy Continue bowel regimen UA consistent with UTI Urine culture: Multiple organisms, no sensitivities Completed 5-day course of antibiotics including 4 days of IV ceftriaxone and 1 day of cefdinir HTN BP persistently elevated Started on lisinopril 5 mg on 12/11, then increased lisinopril to 10 mg daily on 12/15 BP controlled Sacral Erythema/wound b/l stage 2, POA wound care consulted daily wound care Dementia Anxiety per son on admission pt does not take any medications at home despite med list; therefore will not continue any meds documented Total Time Total Time Spent Total Time Spent (In Minutes): 40 Discharge Plan Discharge Items Patient Disposition: Transfer Care Home Fac Reason For Visit: UTI Discharge Diagnosis: ABDOMINAL PAIN CONSTIPATION URINARY TRACT INFECTION Activity: Resume your previous activity Activity Comment: ALWAYS WITH ASSISTANCE, FALL PRECAUTIONS Non-emergency contact: Primary Care Provider Call non-emergency contact if: you have any medication questions Follow-up/Referrals: Iván Haddad PA-C [Primary Care Provider] - Diet: Heart Healthy Addtl Attending Provider Instructions: Patient presenting with abdominal pain felt to be due to constipation. Started on bowel regimen. Patient also treated for UTI and completed antibiotic course while admitted. BP elevated during admission, started on lisinopril 10 mg daily. Continue wound care for sacral decubitus ulcer. Pending Studies at Discharge: No Stand-Alone Forms: [employer] Skilled Items Patient informed of condition?: Yes DNR: No Discharge Level of Care: Skilled Communicable Disease: No Discharge Prognosis: Stable Lines: None Urinary Catheter: No Medications and DC Order Prescriptions: New polyethylene glycol 3350 [Miralax] 17 gram powder in packet 17 g PO DAILY PRN (Reason: constipation) Qty: 14 0RF sennosides-docusate sodium [Senokot-S] 8.6-50 mg Tablet 1 tab PO QAM Qty: 30 0RF lisinopril 10 mg Tablet 10 mg PO QAM Qty: 30 0RF Discontinued buspirone 5 mg tablet 5 - 10 mg PO DAILY PRN (Reason: Anxiety) Rx Instructions: PER PT'S SON "DOES NOT USE THIS DOSE". buspirone 10 mg tablet 10 mg PO BID Rx Instructions: PER PT'S SON "TAKES ONLY WHEN NEEDED". sertraline 50 mg tablet 50 mg PO DAILY Rx Instructions: PER PT'S SON "FILLED SCRIPT, BUT NEVER HAS TAKEN". cholecalciferol (vitamin D3) [Vitamin D3] 125 mcg (5,000 unit) Tablet 125 mcg PO DAILY Other Vitamins 1 dose PO DAILY Rx Instructions: PER PT'S SON "TAKES OTHER VITAMINS TOO". Discharge Orders: Discharge Order (Routine); Ordered 12/22/22 Ordered By: Matilda Madrid Admission Data Admit Date/Time: 12/07/22 15:42 Attending Provider: Palmer Canas Admit Provider: Mitch Harrison Primary Care Provider: Iván Haddad Other Providers: Eloisa Sharpe ; Palmer Canas ; [place] ; [facility] ; Mitch Harrison
== END 2022-12-22 14:33 ==
LOC: 3E 12:55 → ED 12:55 → SUATTDRO 15:55 → 3E 17:49 → SUATTDRO 12-07 15:42
DX: N39.0 Urinary tract infection, site not specified; K59.00 Constipation, unspecified; L53.9 Erythematous condition, unspecified; F03.90 Unspecified dementia, unspecified severity, without behavioral disturbance, psychotic disturbance, mood disturbance, and anxiety; I10 Essential (primary) hypertension; Z79.899 Other long term (current) drug therapy; E86.0 Dehydration